=== PATIENT | male | born 1950 | race Two or more races ===

== ENCOUNTER → 2024-07-08 | Outpatient (CLI) | payer MEDICARE, MEDICAID, SELFPAY ==
[2024-07-08 10:37] LABS: Anion Gap 10 (7-16); BUN/Creatinine Ratio 16 Ratio (12-20); Blood Urea Nitrogen 14 mg/dL (9-23); Calcium 9.9 mg/dL (8.3-10.6); Carbon Dioxide 30.1 mMol/L (20.0-31.0); Chloride 104 mMol/L (98-107); Creatinine (Component) 0.9 mg/dL (0.6-1.3); Glucose 93 mg/dL (74-106); Osmolality,Calculated 287 (275-295); Potassium 3.8 mMol/L (3.4-5.1); Sodium 144 mMol/L (136-145); eGFR > 60 See Note
== END | disposition home or self-care (01) ==
LOC: COPL 09:17
PROVIDERS: Referring Provider Urology; Visit Provider Urology
DX: C64.2 Malignant neoplasm of left kidney, except renal pelvis (principal); N40.1 Benign prostatic hyperplasia with lower urinary tract symptoms
CPT/HCPCS: 36415; 80048

== ENCOUNTER 2024-07-27 13:33 | Outpatient (RCR) | payer MEDICARE, MEDICAID, SELFPAY ==
--- NOTE | 2024-07-27 15:24 | CTCFLWUP_ITS ---
Patient: BRAD MORALES : 1950 Page 2 of 2 FOLLOW UP NOTE DATE OF SERVICE: 07/27/2024 NAME: BRAD MORALES ACCOUNT: [id number] : 1950 AGE: 74 INTERVAL HISTORY: Brad, a male with clear-cell carcinoma of the left kidney, presented for follow-up of lung nodules and hypertension. His history includes valley fever and left nephrectomy (11/26/2018). Multiple lung biopsies ([id number]) were negative for malignancy. September 2022 imaging showed 19mm right tracheobronchial lymph nodes without new nodules or metastatic disease. He takes Diflucan for valley fever and amlodipine, benazepril, and Flomax for hypertension/BPH. Plan includes CT chest, bloodwork, continued medications for his valley fever, and follow-up in 2 months. Chief Complaint Follow-up for clear-cell carcinoma of the left kidney, high blood pressure History of Present Illness Brad is a patient with a history of clear-cell carcinoma of the left kidney, status post nephrectomy on 11/26/2018, presenting for follow-up of lung nodules. The patient has undergone multiple biopsies of lung masses and nodules, all of which have been negative for malignancy. The most recent imaging from September 2022 showed 19-millimeter right tracheobronchial lymph nodes, with no new pulmonary nodules or interval metastatic disease in the abdominal pelvis. Since his last visit with Dr. Zepeda in October 2022, Brad has been prescribed Diflucan for valley fever. He has not had any recent scans since 2022. The patient's blood pressure is reported to be very high, and he is currently taking amlodipine, benazepril, and Flomax for management. Brad has been referred to Dr. Wheat for kidney monitoring. Medical History - Clear-cell carcinoma of the left kidney - Valley fever - Hypertension Surgical History - Left nephrectomy on 11/26/2018 for clear-cell carcinoma of the left kidney - Right lung mass biopsy on 08/29/2019 - Lung biopsy on 01/06/2020 - Lung biopsy on 01/03/2022 Medications and Supplements - Diflucan - Prescribed for valley fever. 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 REASON FOR TODAY?S VISIT: This is office follow-up visit. Mr. Morales is here at [facility]. He denies any complaints today. Denies any cough, chest pain, abdominal pain or leg cramps. A recent CT scan of the chest abdomen done on 10/21/2022 showed new small pulmonary nodules. Currently patient is back on Diflucan. DATE OF DIAGNOSIS: STAGE/TNM: TREATMENT HISTORY: Care?Plan Start?Date Cycle Day Intent HISTORY OF PRESENT ILLNESS: Brad Argueta is a 74-year-old S[place] speaking male 2019: Patient had colonoscopy done. 07/09/2018: CT scan of the chest abdomen and pelvis with IV contrast showed mediastinal adenopathy with numerous bilateral pulmonary nodules, enhancing solid tumor mass in the medial aspect of the left kidney. 08/28/2018: Left kidney biopsy?clear cell renal cell carcinoma. Pulmonary nodule CT-guided biopsy on the same day showed caseating granulomatous inflammation. Positive for scant fungal elements. 10/08/2018: Patient was started on Diflucan. 10/12/2018: QuantiFERON TB test negative 10/26/2018 cocci complement fixation positive , 1: 8 Cocci immunodiffusion serum positive IgG 11/26/2018: Patient had ureteroscopic left partial nephrectomy?cystoscopy and ureteral stent placement at [facility]. Pathology showed 2.5 cm clear-cell renal cell carcinoma ISU P grade 3/4, confined to the kidney. No lymphovascular invasion or sarcomatoid or rhabdoid features identified. It was staged as a pT1a, NX, MX disease. 01/27/2019: CT scan of the chest abdomen and pelvis with contrast?IMPRESSION: Stable mediastinal adenopathy Bilateral pulmonary nodules, several are smaller and some pulmonary nodules are no longer identified compared to the July 09, 2018 exam Cystlike area posterior margin left kidney, 4 cm in dimension, not seen on the July 09, 2018 exam Recommend renal sonography follow-up 07/22/2019: CT scan of the chest abdomen and pelvis with IV contrast? 08/18/2011: Patient decided not to have the lung nodules biopsied. 12/20/2019: CT scan of the chest, abdomen and pelvis with IV contrast? 01/06/2020: CT-guided biopsy of the right upper lobe pulmonary mass lesion? 08/16/2020: CT scan of the chest abdomen and pelvis with IV contrast 07/25/2021: CT scan of the chest, abdomen and pelvis with IV contrast to evaluate the cause for abdominal pain of 1 day duration? 08/28/2021: CT-guided biopsy of the right lung lower lobe nodule? 11/20/2021: CT scan of the chest abdomen and pelvis with IV contrast? 01/03/2022: CT-guided biopsy of the right lung lesion? 01/22/2022: X-rays of both hips as well as both femurs? 02/14/2022: Bone scan negative for metastatic disease. 10/21/2022: CT scan of the chest and abdomen with contrast? OTHER MEDICAL HISTORY/CONDITIONS: FAMILY HISTORY: SOCIAL HISTORY: MEDICATIONS: 1. amlodipine - 5 mg 1 tab Daily 2. benazepril-hydrochlorothiazide - 20-12.5 mg 1 tab Daily 3. carvedilol - 25 mg 1 tab Daily 4. Diflucan - 200 mg 1 tab Daily 5. Lantus Solostar - 100 unit/mL (3 mL) 46 Unit Daily 6. omeprazole - 40 mg 1 Capsule Daily 7. tamsulosin - 0.4 mg 1 Capsule Daily Medications Last Reconciled by Gisell Brown MA on 07/27/2024 ALLERGIES: No Known Drug Allergies REVIEW OF SYSTEMS: A complete 14-point review of systems was performed and is negative except as noted in interval history. PHYSICAL EXAMINATION: VITAL SIGNS: Temperature?98, B/P?174/87, Oxygen?Saturation?98% Weight?181?lbs PAIN: 8 - Very severe pain ECOG Performance Status: 0 - Asymptomatic and fully active GENERAL APPEARANCE: Appears well, in no apparent distress, appropriately interactive. HEENT: Normocephalic, no temporal wasting, normal conjunctiva, no scleral icterus, normal hearing, lips without lesions, neck normal range of motion. CARDIOVASCULAR: Not assessed. PULMONARY: Normal respiratory effort, no respiratory distress or use of accessory muscles, speaking in full sentences, no tachypnea. EXTREMITIES: No pedal edema or cyanosis. SKIN: Normal skin appearance. NEUROLOGIC: Alert and oriented x4. PSHYCHIATRIC: Appropriate affect, mood normal, behavior normal, intact thought and speech. LABORATORY DATA: I have personally reviewed and interpreted each of the patient?s relevant lab tests, abnormal findings are below: Date 08/18/23 07/08/24 ??WHITE?BLOOD?COUNT?(Thou/mm3) 4.1 ? ??RED?BLOOD?COUNT?(Miln/mm3) 4.89 ? ??HEMOGLOBIN?(gm/dl) 13.4?L ? ??HEMATOCRIT?(%) 41.0 ? ??PLATELET?COUNT?(Thou/mm3) 187 ? ??NEUTROPHILS?%,?AUTO?(%) 61 ? ??LYMPH?%,?AUTO?(%) 28 ? ??NEUTROPHILS,?AUTO?(Thou/mm3) 2.5 ? ??GLUCOSE,RANDOM?(mg/dL) 93 93 ??BLOOD?UREA?NITROGEN?(mg/dL) 10 14 ??CREATININE?(mg/dL) 0.70 0.90 ??SODIUM?(mmol/L) 137 144 ??POTASSIUM?(mmol/L) 3.5 3.8 ??CHLORIDE?(mmol/L) 103 104 ??CrCl?(CandG)?(ml/min) 93.23 72.51 ??AST/SGOT?(Unit/L) 26 ? ??ALT/SGPT?(Unit/L) 19 ? ??ALKALINE?PHOSPHATASE?(Unit/L) 132?H ? ??BILIRUBIN,?TOTAL?(mg/dL) 0.8 ? ??PROTEIN?TOTAL?(gm/dl) 7.6 ? ??ALBUMIN,?SERUM?(gm/dl) 4.4 ? ??GLOBULIN?(gm/dl) 3.2 ? ??ALBUMIN/GLOBULIN?RATIO 1.4 ? ??CALCIUM,?SERUM?(mg/dL) 9.8 9.9 ??CALCIUM?SERUM?(CORRECTED)?(mg/dL) 9.8 ? ??CEA?(O*)?(ng/ml) 0.9 ? Vital Signs - Blood Pressure: Elevated (exact measurements not provided) Laboratory, Imaging, and Diagnostic Test Results - Biopsy (08/29/2019): Right lung mass showed benign muscle and fibrotic tissue with chronic inflammation - Biopsy (01/06/2020): Negative for malignancy - Biopsy (01/03/2022): Benign lung tissue with no specific pathological alterations - Imaging (10/21/2022): - 19-millimeter right tracheobronchial lymph nodes - No new pulmonary nodules - No interval metastatic disease in the abdominal pelvis ASSESSMENT/PLAN: Clear cell carcinoma of the left kidney. Status post left partial nephrectomy. No evidence of recurrence History of pulmonary coccidiomycosis infection. Bone scan is also negative for bone mets. CT-guided biopsy of the right lung lesion is negative for malignancy (01/03/2022). Repeat CT scan done on 11/20/2021 showed enlarging right tracheobronchial lymph node as well as other lesions as described above. CT-guided biopsy of the right lower lobe pulmonary nodule was nondiagnostic as described above (08/28/2021). Currently Mr. Morales is on Diflucan for valley fever. Continue Diflucan. Brad, a male patient with a history of clear-cell carcinoma of the left kidney status post nephrectomy in 2018, presents for follow-up of lung nodules and hypertension management. Clear-cell carcinoma of the left kidney, status post nephrectomy Assessment: Patient underwent left nephrectomy on 11/26/2018 for clear-cell carcinoma. Subsequent lung nodules were identified, prompting multiple biopsies. Biopsies on 08/29/2019, 01/06/2020, and 01/03/2022 were negative for malignancy. Most recent imaging on 10/21/2022 showed 19-millimeter right tracheobronchial lymph nodes, no new pulmonary nodules, and no interval metastatic disease in the abdominal pelvis. No imaging has been performed since September 2022. Patient was last seen by Dr. Zepeda in October 2022. Plan: - Order CT scan of the chest for surveillance - Order blood work (specifics not mentioned) - Follow-up in [address] scan results Hypertension Assessment: Patient's blood pressure is noted to be very high. Currently on amlodipine, benazepril, and Flomax for management. Plan: - Continue current antihypertensive medications: amlodipine, benazepril, and Flomax - Referred to Dr. Wheat for kidney monitoring Valley fever Assessment: Patient was prescribed Diflucan for valley fever. No further details provided about the course or severity of the infection. Plan: - Continue Diflucan for valley fever (dosage and duration not specified) ORDERS: Order # Description [id number] Comprehensive Metabolic Panel - 12 + CBC with Auto Diff [id number] CT Scan + Chest + With W/O Contrast + Abdomen and Pelvis [id number] Follow Up 2 Months [id number] RETURN TO CLINIC: BILLING AND COMPLIANCE: I reviewed external records from providers outside my specialty as summarized above. I spent a total of 50 minutes on this patient?s care on the day of their visit excluding time spent related to any billed procedures. This time includes time spent with the patient as well as time spent documenting in the medical record, reviewing patients records and tests, obtaining history, placing orders, communicating with other healthcare professionals, counseling the patient, family or caregiver, and/or care coordination for the diagnoses above. Electronically Signed by: Jaya Kim MD T: 3:22 PM CC: PCP: Jaya Kim Referring: Jaya Kim This document was completed utilizing speech recognition software. Grammatical errors, random word insertions, pronoun errors, and incomplete sentences are an occasional consequence of this system due to software limitations, ambient noise, and hardware issues. Any formal questions or concerns about the content, text or information contained within the body of this dictation should be directly addressed to the provider for clarification.
== END 2024-07-28 23:59 | disposition home or self-care (01) ==
LOC: SCTC 13:33
PROVIDERS: PCP Family Medicine; Referring Provider Internal Medicine Hematology & Oncology; Visit Provider Internal Medicine Hematology & Oncology
DX: Z08 Encounter for follow-up examination after completed treatment for malignant neoplasm (principal); Z85.528 Personal history of other malignant neoplasm of kidney; Z90.5 Acquired absence of kidney; I10 Essential (primary) hypertension; R91.8 Other nonspecific abnormal finding of lung field; R59.0 Localized enlarged lymph nodes; B38.2 Pulmonary coccidioidomycosis, unspecified
CPT/HCPCS: 99212; G0463

== ENCOUNTER → 2024-08-18 | Outpatient (CLI) | payer MEDICARE, MEDICAID, SELFPAY ==
[2024-08-17 12:22] LABS: Basophils % (Auto) 1 % (0-2.5); Eosinophils # (Auto) 0.1 Thou/mm3 (0.0-0.5); Eosinophils % (Auto) 1 % (0-10); Hematocrit 43.4 % (41.0-53.0); Hemoglobin 14.4 g/dL (13.5-16.0); Immature Granulocytes % (Auto) 1 % (0-0); Immature Granulocytes Auto 0.02 Thou/mm3 (0.00-0.00); Lymphocytes # (Auto) 1.5 Thou/mm3 (1.0-4.8); Lymphocytes % (Auto) 37 % (10-50); Mean Corpuscular HGB Conc 33.2 g/dl (31.0-37.0); Mean Corpuscular Volume 84 fL (80-100); Monocytes # (Auto) 0.5 Thou/mm3 (0.0-0.8); Monocytes % (Auto) 13 % (0-12); Neutrophils % (Auto) 49 % (37-80); Nucleated Red Blood Cell % 0 /100 WBC (0); Platelet Count 217 Thou/mm3 (140-440); RDW Standard Deviation 43.4 fL (35.1-43.9); Red Blood Count 5.15 Miln/mm3 (4.50-5.90); White Blood Count 4.2 Thou/mm3 (3.8-10.6)
[2024-08-17 12:38] LABS: Alanine Aminotransferase 13 U/L (10-49); Albumin, Serum 4.6 gm/dL (3.4-4.8); Albumin/Globulin Ratio 1.5 (1.2-2.2); Alkaline Phosphatase 133 U/L (46-116); Anion Gap 9 (7-16); Aspartate Amino Transferase 20 U/L (0-34); BUN/Creatinine Ratio 18 Ratio (12-20); Bilirubin,Total 0.8 mg/dL (0.3-1.2); Blood Urea Nitrogen 20 mg/dL (9-23); Calcium 10.1 mg/dL (8.3-10.6); Calcium (Corrected) 10.1 mg/dL (8.5-10.1); Carbon Dioxide 30.8 mMol/L (20.0-31.0); Chloride 101 mMol/L (98-107); Creatinine (Component) 1.1 mg/dL (0.6-1.3); Globulin 3.1 gm/dL (2.3-3.5); Glucose 153 mg/dL (74-106); Osmolality,Calculated 286 (275-295); Sodium 141 mMol/L (136-145); Total Protein 7.7 gm/dL (5.7-8.2); eGFR > 60 See Note
--- NOTE | 2024-08-18 15:03 | XR_ITS ---
Examination: CT chest with intravenous contrast CT abdomen with intravenous contrast CT pelvis with intravenous contrast CT chest without intravenous contrast CT abdomen without intravenous contrast CT pelvis without intravenous contrast 2-D coronal and sagittal reconstructions Time of exam: August 18, [address] abdomen pelvis August 26, 2023, CT abdomen and pelvis February 26, 2023, CT chest October 21, 2022 INDICATIONS: Diagnosis left renal cell carcinoma, post partial nephrectomy 2014, restaging, 4 mm left common iliac lymph node on CT abdomen and pelvis August 26, 2023, 19 mm right tracheobronchial lymph node and pulmonary nodules on CT chest October 21, 2022 restaging CTDI: vol (mGy) : 15.8 DLP: (mGycm): 1303 Technique: Multiple axial images of the chest, abdomen and pelvis with intravenous contrast, 3.0 mm slice thickness. Images obtained post intravenous injection Isovue 370 60 cc. 2-D sagittal and coronal reconstructions. Low dose protocols were performed. One or more of the following dose reduction techniques were used; automated exposure control, adjustment of the mA and/or KV according to patient size, use of iterative reconstruction technique. Findings: AP dimension ascending thoracic aorta 3.8 cm, no thoracic aortic dissection Pulmonary artery segments are not enlarged No pulmonary artery filling defects on this non-CTA study Stable 19 mm right tracheobronchial lymph node compared to CT chest October 21, 2022 No interval hilar or subcarinal lymphadenopathy Stable 3 mm pulmonary nodule right upper lobe compared with October 21, 2022 Cavitary mass 18 mm in the left upper lobe on the CT chest October 21, 2022 is now a solid nodule measuring 11 mm Pulmonary nodule left upper lobe 7 mm compared to 7 mm on October 21, 2022 Pulmonary nodule in the right upper lobe image 102 now measures 11 mm compared to 7 mm on October 21, 2022 No interval pneumonia or pulmonary edema No interval liver or splenic lesions Contracted gallbladder No pancreatic or adrenal mass Partial left colectomy with no recurrent solid renal mass lesions No thrombus in the renal veins Adrenal glands are not enlarged Stable 4 mm left common iliac lymph node compared with October 21, 2022 No new abdominal or pelvic lymphadenopathy Moderate osteopenia Mild prostatomegaly IMPRESSION: One of the pulmonary nodules in the right upper lobe now measures 11 mm compared to [address] chest October 21, 2022, the remaining pulmonary nodules are stable, recommend continued 6 month follow-up CT chest without contrast No interval solid renal mass lesions Stable 4 mm left common iliac node compared to CT abdomen and pelvis October 21, 2022 No interval abdominal or pelvic lymphadenopathy
== END | disposition home or self-care (01) ==
LOC: SCTO 14:57 → SCAT 08-27 10:55
PROVIDERS: Referring Provider Internal Medicine Hematology & Oncology; Visit Provider Internal Medicine Hematology & Oncology
DX: R91.8 Other nonspecific abnormal finding of lung field (principal); C34.91 Malignant neoplasm of unspecified part of right bronchus or lung; C34.92 Malignant neoplasm of unspecified part of left bronchus or lung
CPT/HCPCS: 36415; 71270; 74178; 80053; 85025; A4649; Q9967

== ENCOUNTER → 2024-09-16 | Outpatient (CLI) | payer MEDICARE, MEDICAID, SELFPAY ==
[2024-09-16 10:36] LABS: Basophils % (Auto) 1 % (0-2.5); Eosinophils # (Auto) 0.1 Thou/mm3 (0.0-0.5); Eosinophils % (Auto) 2 % (0-10); Hematocrit 41.6 % (41.0-53.0); Hemoglobin 13.8 g/dL (13.5-16.0); Immature Granulocytes % (Auto) 1 % (0-0); Immature Granulocytes Auto 0.04 Thou/mm3 (0.00-0.00); Lymphocytes # (Auto) 1.3 Thou/mm3 (1.0-4.8); Lymphocytes % (Auto) 30 % (10-50); Mean Corpuscular HGB Conc 33.2 g/dl (31.0-37.0); Mean Corpuscular Hemoglobin 27.4 pg (25.0-35.0); Mean Corpuscular Volume 83 fL (80-100); Monocytes # (Auto) 0.6 Thou/mm3 (0.0-0.8); Monocytes % (Auto) 14 % (0-12); Neutrophils # (Auto) 2.2 Thou/mm3 (1.8-7.7); Neutrophils % (Auto) 53 % (37-80); Nucleated Red Blood Cell % 0 /100 WBC (0); Platelet Count 201 Thou/mm3 (140-440); RDW Standard Deviation 42.7 fL (35.1-43.9); Red Blood Count 5.04 Miln/mm3 (4.50-5.90); White Blood Count 4.2 Thou/mm3 (3.8-10.6)
[2024-09-16 11:01] LABS: Alanine Aminotransferase 20 U/L (10-49); Albumin, Serum 4.4 gm/dL (3.4-4.8); Albumin/Globulin Ratio 1.6 (1.2-2.2); Alkaline Phosphatase 118 U/L (46-116); Anion Gap 8 (7-16); Aspartate Amino Transferase 27 U/L (0-34); BUN/Creatinine Ratio 12 Ratio (12-20); Bilirubin,Total 0.9 mg/dL (0.3-1.2); Blood Urea Nitrogen 11 mg/dL (9-23); Calcium 9.4 mg/dL (8.3-10.6); Calcium (Corrected) 9.4 mg/dL (8.5-10.1); Chloride 102 mMol/L (98-107); Creatinine (Component) 0.9 mg/dL (0.6-1.3); Globulin 2.8 gm/dL (2.3-3.5); Glucose 173 mg/dL (74-106); Osmolality,Calculated 282 (275-295); Sodium 140 mMol/L (136-145); Total Protein 7.2 gm/dL (5.7-8.2); eGFR > 60 See Note
== END | disposition home or self-care (01) ==
LOC: COPL 09:30
PROVIDERS: PCP Internal Medicine Hematology & Oncology; Referring Provider Internal Medicine Hematology & Oncology; Visit Provider Internal Medicine Hematology & Oncology
DX: C34.91 Malignant neoplasm of unspecified part of right bronchus or lung (principal); C34.92 Malignant neoplasm of unspecified part of left bronchus or lung; N28.89 Other specified disorders of kidney and ureter
CPT/HCPCS: 36415; 80053; 85025

== ENCOUNTER 2024-09-23 14:34 | Outpatient (RCR) | payer MEDICARE, MEDICAID, SELFPAY ==
--- NOTE | 2024-09-30 03:50 | CTCFLWUP_ITS ---
Patient: BRAD MORALES : 1950 Page 8 of 10 FOLLOW UP NOTE DATE OF SERVICE: 09/23/2024 NAME: BRAD MORALES ACCOUNT: [id number] : 1950 AGE: 74 INTERVAL HISTORY: Brad Morales, a male with lung nodules and history of renal cancer status post nephrectomy (2018) and valley fever, presented for nodule follow-up. Recent imaging showed most nodules stable except one increased to 11mm. Previous biopsies were negative for malignancy. Given the diagnostic uncertainty between metastatic renal cancer versus valley fever manifestation, management includes CT chest in 6 months, Eric testing to help differentiate etiology, and possible rebiopsy if further growth occurs. His history includes valley fever and left nephrectomy (11/26/2018). Multiple lung biopsies ([id number]) were negative for malignancy. September 2022 imaging showed 19mm right tracheobronchial lymph nodes without new nodules or metastatic disease. He takes Diflucan for valley fever and amlodipine, benazepril, and Flomax for hypertension/BPH. Subjective: Chief Complaint Follow-up for lung nodules, history of renal cancer History of Present Illness Brad Morales is a male patient with a history of renal cancer, status post nephrectomy in 2018, and valley fever. He presents for follow-up of lung nodules. The patient has been under surveillance for lung nodules, which were previously biopsied and found to be negative for malignancy. Recent imaging shows that most of the lung nodules remain stable, except for one which has increased in size to 11 millimeters. The patient has also been referred to nephrology in the past, though it is unclear if he has seen the kidney doctor as recommended. Given the patient's history of valley fever, there is uncertainty about the etiology of the enlarging lung nodule. The plan is to repeat imaging in 6 months to monitor for further growth and consider rebiopsy if necessary. Objective: Laboratory, Imaging, and Diagnostic Test Results - CT scan of the chest (date not specified): - Multiple lung nodules present - One lung nodule increased in size to 11 mm - Other lung nodules stable - Previous biopsy of lung nodules (date not specified): Negative for malignancy Surgical History - Left nephrectomy on 11/26/2018 for clear-cell carcinoma of the left kidney - Right lung mass biopsy on 08/29/2019 - Lung biopsy on 01/06/2020 - Lung biopsy on 01/03/2022 Medications and Supplements - Diflucan - Prescribed for valley fever. 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 REASON FOR TODAY?S VISIT: This is office follow-up visit. Mr. Morales is here at [facility]. He denies any complaints today. Denies any cough, chest pain, abdominal pain or leg cramps. A recent CT scan of the chest abdomen done on 10/21/2022 showed new small pulmonary nodules. Currently patient is back on Diflucan. DATE OF DIAGNOSIS: STAGE/TNM: TREATMENT HISTORY: Care?Plan Start?Date Cycle Day Intent HISTORY OF PRESENT ILLNESS: Brad Argueta is a 74-year-old SPA speaking male 2019: Patient had colonoscopy done. 07/09/2018: CT scan of the chest abdomen and pelvis with IV contrast showed mediastinal adenopathy with numerous bilateral pulmonary nodules, enhancing solid tumor mass in the medial aspect of the left kidney. 08/28/2018: Left kidney biopsy?clear cell renal cell carcinoma. Pulmonary nodule CT-guided biopsy on the same day showed caseating granulomatous inflammation. Positive for scant fungal elements. 10/08/2018: Patient was started on Diflucan. 10/12/2018: QuantiFERON TB test negative 10/26/2018 cocci complement fixation positive , 1: 8 Cocci immunodiffusion serum positive IgG 11/26/2018: Patient had ureteroscopic left partial nephrectomy?cystoscopy and ureteral stent placement at [facility]. Pathology showed 2.5 cm clear-cell renal cell carcinoma ISU P grade 3/4, confined to the kidney. No lymphovascular invasion or sarcomatoid or rhabdoid features identified. It was staged as a pT1a, NX, MX disease. 01/27/2019: CT scan of the chest abdomen and pelvis with contrast?IMPRESSION: Stable mediastinal adenopathy Bilateral pulmonary nodules, several are smaller and some pulmonary nodules are no longer identified compared to the July 09, 2018 exam Cystlike area posterior margin left kidney, 4 cm in dimension, not seen on the July 09, 2018 exam Recommend renal sonography follow-up 07/22/2019: CT scan of the chest abdomen and pelvis with IV contrast? 08/18/2011: Patient decided not to have the lung nodules biopsied. 12/20/2019: CT scan of the chest, abdomen and pelvis with IV contrast? 01/06/2020: CT-guided biopsy of the right upper lobe pulmonary mass lesion? 08/16/2020: CT scan of the chest abdomen and pelvis with IV contrast 07/25/2021: CT scan of the chest, abdomen and pelvis with IV contrast to evaluate the cause for abdominal pain of 1 day duration? 08/28/2021: CT-guided biopsy of the right lung lower lobe nodule? 11/20/2021: CT scan of the chest abdomen and pelvis with IV contrast? 01/03/2022: CT-guided biopsy of the right lung lesion? 01/22/2022: X-rays of both hips as well as both femurs? 02/14/2022: Bone scan negative for metastatic disease. 10/21/2022: CT scan of the chest and abdomen with contrast? OTHER MEDICAL HISTORY/CONDITIONS: FAMILY HISTORY: SOCIAL HISTORY: MEDICATIONS: 1. amlodipine - 5 mg 1 tab Daily 2. benazepril-hydrochlorothiazide - 20-12.5 mg 1 tab Daily 3. carvedilol - 25 mg 1 tab Daily 4. Lantus Solostar - 100 unit/mL (3 mL) 46 Unit Daily 5. omeprazole - 40 mg 1 Capsule Daily 6. tamsulosin - 0.4 mg 1 Capsule Daily Medications Last Reconciled by Gisell Brown MA on 09/23/2024 ALLERGIES: No Known Drug Allergies REVIEW OF SYSTEMS: A complete 14-point review of systems was performed and is negative except as noted in interval history. PHYSICAL EXAMINATION: VITAL SIGNS: Temperature?98, B/P?146/80, Oxygen?Saturation?98% PAIN: 0 - No pain ECOG Performance Status: 0 - Asymptomatic and fully active GENERAL APPEARANCE: Appears well, in no apparent distress, appropriately interactive. HEENT: Normocephalic, no temporal wasting, normal conjunctiva, no scleral icterus, normal hearing, lips without lesions, neck normal range of motion. CARDIOVASCULAR: Not assessed. PULMONARY: Normal respiratory effort, no respiratory distress or use of accessory muscles, speaking in full sentences, no tachypnea. EXTREMITIES: No pedal edema or cyanosis. SKIN: Normal skin appearance. NEUROLOGIC: Alert and oriented x4. PSHYCHIATRIC: Appropriate affect, mood normal, behavior normal, intact thought and speech. LABORATORY DATA: I have personally reviewed and interpreted each of the patient?s relevant lab tests, abnormal findings are below: Date 08/17/24 09/16/24 ??WHITE?BLOOD?COUNT?(Thou/mm3) 4.2 4.2 ??RED?BLOOD?COUNT?(Miln/mm3) 5.15 5.04 ??HEMOGLOBIN?(gm/dl) 14.4 13.8 ??HEMATOCRIT?(%) 43.4 41.6 ??PLATELET?COUNT?(Thou/mm3) 217 201 ??NEUTROPHILS?%,?AUTO?(%) 49 53 ??LYMPH?%,?AUTO?(%) 37 30 ??NEUTROPHILS,?AUTO?(Thou/mm3) 2.0 2.2 ??GLUCOSE,RANDOM?(mg/dL) 153?H 173?H ??BLOOD?UREA?NITROGEN?(mg/dL) 20 11 ??CREATININE?(mg/dL) 1.10 0.90 ??SODIUM?(mmol/L) 141 140 ??POTASSIUM?(mmol/L) 4.0 4.0 ??CHLORIDE?(mmol/L) 101 102 ??CrCl?(CandG)?(ml/min) 57.24 69.96 ??AST/SGOT?(Unit/L) 20 27 ??ALT/SGPT?(Unit/L) 13 20 ??ALKALINE?PHOSPHATASE?(Unit/L) 133?H 118?H ??BILIRUBIN,?TOTAL?(mg/dL) 0.8 0.9 ??PROTEIN?TOTAL?(gm/dl) 7.7 7.2 ??ALBUMIN,?SERUM?(gm/dl) 4.6 4.4 ??GLOBULIN?(gm/dl) 3.1 2.8 ??ALBUMIN/GLOBULIN?RATIO 1.5 1.6 ??CALCIUM,?SERUM?(mg/dL) 10.1 9.4 ??CALCIUM?SERUM?(CORRECTED)?(mg/dL) 10.1 9.4 ASSESSMENT/PLAN: Clear cell carcinoma of the left kidney. Status post left partial nephrectomy. No evidence of recurrence History of pulmonary coccidiomycosis infection. Bone scan is also negative for bone mets. CT-guided biopsy of the right lung lesion is negative for malignancy (01/03/2022). Repeat CT scan done on 11/20/2021 showed enlarging right tracheobronchial lymph node as well as other lesions as described above. CT-guided biopsy of the right lower lobe pulmonary nodule was nondiagnostic as described above (08/28/2021). Currently Mr. Morales is on Diflucan for valley fever. Brad Morales, male patient with history of renal cancer status post nephrectomy in 2019, presenting for follow-up of lung nodules. Lung Nodules Assessment: Patient has multiple lung nodules that have been under surveillance. Most nodules are stable, but one has increased in size to 11 mm. Previous biopsy of the nodules was negative. The etiology of the nodules is unclear, as the patient has a history of both renal cancer and valley fever, either of which could potentially cause lung nodules. Given the growth of one nodule, further evaluation is warranted. Plan: - Order CT scan of the chest in 6 months for reassessment of lung nodules - Order Eric testing to help differentiate between cancerous and non-cancerous etiology of the nodules - If the nodule continues to grow on follow-up imaging, consider repeat biopsy History of Renal Cancer Assessment: Patient has a history of renal cancer for which he underwent nephrectomy in 2019. Currently being monitored for potential metastatic disease, particularly in light of the lung nodules. Plan: - Continue surveillance with imaging studies as outlined in the lung nodules plan - Await results of Eric testing to guide further management Valley Fever Assessment: Patient has a history of valley fever, which is being considered as a potential cause of the lung nodules. Plan: - Continue monitoring lung nodules as outlined in the lung nodules plan - Consider valley fever as a differential diagnosis pending results of further testing - Clear-cell carcinoma of the left kidney - Valley fever - Hypertension ORDERS: Order # Description [id number] CT Scan + Chest + With W/O Contrast RETURN TO CLINIC: I reviewed the diagnosis, prognosis, and recommended treatment/procedure options with the patient (and/or their legal computer help desk representative), including the potential benefits, risks, side effects and alternative therapies. We also discussed the option of no treatment and the possibility of clinical trial participation, if applicable. All questions were addressed, and they demonstrated understanding. They provided informed consent to proceed with the proposed plan of care. BILLING AND COMPLIANCE: I reviewed external records from providers outside my specialty as summarized above. I spent a total of 50 minutes on this patient?s care on the day of their visit excluding time spent related to any billed procedures. This time includes time spent with the patient as well as time spent documenting in the medical record, reviewing patients records and tests, obtaining history, placing orders, communicating with other healthcare professionals, counseling the patient, family or caregiver, and/or care coordination for the diagnoses above. Electronically Signed by: {Object.Sanct_ID*PnP.NameFL@M}, {Object.Sanct_ID*PnP.Suffix@U} D: {Object.Sanct_Date} T: {Object.Sanct_Time} CC: PCP: Jaya Kim Referring: Jaya Kim This document was completed utilizing speech recognition software. Grammatical errors, random word insertions, pronoun errors, and incomplete sentences are an occasional consequence of this system due to software limitations, ambient noise, and hardware issues. Any formal questions or concerns about the content, text or information contained within the body of this dictation should be directly addressed to the provider for clarification.
== END 2024-09-27 23:59 | disposition home or self-care (01) ==
LOC: SCTC 14:34
PROVIDERS: PCP Family Medicine; Referring Provider Internal Medicine Hematology & Oncology; Visit Provider Internal Medicine Hematology & Oncology
DX: Z08 Encounter for follow-up examination after completed treatment for malignant neoplasm (principal); Z85.528 Personal history of other malignant neoplasm of kidney; Z90.5 Acquired absence of kidney; R91.8 Other nonspecific abnormal finding of lung field; B38.0 Acute pulmonary coccidioidomycosis
CPT/HCPCS: 99213; G0463

== ENCOUNTER → 2024-09-27 | Outpatient (BNVA) | payer MEDICARE, MEDICAID, SELFPAY | END | disposition home or self-care (01) | PROVIDERS: Visit Provider Urology | DX: N40.1 Benign prostatic hyperplasia with lower urinary tract symptoms (principal); N13.8 Other obstructive and reflux uropathy; C64.2 Malignant neoplasm of left kidney, except renal pelvis; I10 Essential (primary) hypertension; I25.10 Atherosclerotic heart disease of native coronary artery without angina pectoris; E11.9 Type 2 diabetes mellitus without complications; Z79.4 Long term (current) use of insulin; E66.9 Obesity, unspecified; Z68.33 Body mass index [BMI] 33.0-33.9, adult; E78.00 Pure hypercholesterolemia, unspecified | CPT/HCPCS: 81003; 99212; 99213; G0463 ==

== ENCOUNTER 2024-12-06 17:18 | Emergency (ER) | payer MEDICARE, MEDICAID, SELFPAY ==
--- NOTE | 2024-12-06 17:20 | EKG_ITS ---
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: : 1950 Requested By: Eber Pak Order Number: [id number] Reading MD: Eber Pak Measurements Intervals [place] Rate: 81 P: 65 SD: 233 QRS: -33 QRSD: 85 T: 62 QT: 343 QTc: 400 Interpretive Statements SINUS RHYTHM WITH FIRST DEGREE AV BLOCK POSSIBLE RIGHT VENTRICULAR CONDUCTION DELAY [RSR (QR) IN V1/V2] MODERATE VOLTAGE CRITERIA FOR LVH, CONSIDER NORMAL VARIANT [MEETS CRITERIA IN ONE OF: R(aVL), S(V1), R(V5), R(V5/V6)+S(V1)] POSSIBLE ANTERIOR MYOCARDIAL INFARCTION , OF INDETERMINATE AGE [30 ms Q WAVE IN V3/V4, OR R < 0.2 mV IN V4] INFERIOR MYOCARDIAL INFARCTION , PROBABLY OLD [40+ ms Q WAVE AND/OR ST/T ABNORMALITY IN II/aVF] Compared to ECG 02/26/2023 19:55:46 First degree AV block now present Myocardial infarct finding still present /store/S0/[id number]/ecg/[id number].pdf
--- NOTE | 2024-12-06 17:20 | XR_ITS ---
Examination: AP chest single view. Technique: Portable sitting AP chest single view Date and time: December 06, 2024, 1751 hrs. Indications: Sepsis protocol. Today Findings: Mild to moderate bibasilar pneumonia. Mild prominence left ventricle. Prominent osteopenia. Impression: Bibasilar pneumonia.
--- NOTE | 2024-12-06 17:21 | EDNOTE_ITS ---
ED General RME/HPI General Chief complaint: Flu Like Symptoms Stated complaint: COVID/FLU LIKE SYMPTOMS Time Seen by Provider: 12/06/24 17:19 Arrival date/time: 12/06/24 17:18 CC: Cough fever body aches chest pain abdominal pain patient denies nausea or vomiting onset 4 days ago EMS report tachycardia warm to touch with otherwise stable vital signs. Patient is awake alert oriented stating nobody else in the household is ill. Related Data Home Medications ?Medication ?Instructions ?Recorded ?Confirmed insulin glargine 100 unit/mL (3 46 unit subcut HS 06/3009/27/24 mL) subcutaneous pen (Lantus Solostar U-100 Insulin) metoprolol succinate 25 mg 25 mg PO QDAY 07/25/2108/31 tablet,extended release 24 hr amlodipine 10 mg tablet 10 mg PO QDAY 01/04/2209/27 atorvastatin 80 mg tablet 80 mg PO QDAY 01/04/2209/27 tamsulosin 0.4 mg capsule 0.4 mg PO QHS 06/13/2309/27 Previous Rx's ?Medication ?Instructions ?Recorded ondansetron 4 mg disintegrating 4 mg PO Q8H #10 tabs 0 12/06/24 tablet ondansetron 4 mg disintegrating 4 mg PO Q8H #10 tabs 0 12/06/24 tablet Allergies Allergy/AdvReac Type Severity Reaction Status Date / Time No Known Allergies Allergy Verified 09/27/24 13:23 Review of Systems Review of Systems Narrative Review of Systems: GEN: + fever, + chills, no weight loss EYES: No discharge, no visual changes, no pain HEENT: No ear pain, no congestion, no sore throat PULM: No shortness of breath, no cough, no congestion CV: + chest pain, no dyspnea on exertion, no palpitations GI: No nausea, no vomiting, no diarrhea, no pain, no constipation : No frequency, no urgency, no dysuria MUSC/SKEL: No joint pain, no back pain SKIN: No rash PSYCH: No hallucinations, no depression HEME/LYMPH: No easy bleeding or bruising tendencies NEURO: + weakness, no headache Past Medical History Past Medical History NEUROLOGIC: Negative Neurological Disorders CARDIAC: Positive Hypercholesterolemia and Hypertension; Negative Cardiac Disorders or Congestive Heart Failure RESPIRATORY: Negative Chronic Obstructive Pulmonary Disease (COPD) or Asthma GASTROINTESTINAL: Positive Gastrointestinal Disorders (constipation); Negative Gastroesophageal Reflux Disease GENITOURINARY: Positive Renal Disease and Benign Prostatic Hyperplasia MUSCULOSKELETAL: Positive Arthritis and Fibromyalgia ENT: Negative Cataracts ENDOCRINE: Positive Diabetes Mellitus Type 2; Negative Diabetes Mellitus Type 1 HEMATOLOGIC: Negative Blood Disorders or Sickle Cell Disease PSYCHO/SOCIAL: Positive Depression OTHER HISTORY: Positive Hospitalization, Chicken Pox, Measles, Cancer and Lung Cancer; Negative Autoimmune Disease, Down Syndrome, Developmental Delay, Shingles, Falls, Blood Transfusions, Anesthesia Reactions, Organ Transplant or MRSA Family History FAMILY HISTORY: Negative Family Psychiatric Problems, Family Respiratory Disorders, Family Cardiac Disorders, Family Gastrointestinal Problems, Family Cancer, Family Surgery or Family Anesthesia Reaction Surgical History SURGICAL: Positive Nephrectomy (rt partial); Negative Cardiac Surgery, Endocrine Surgery, Ear Surgery, Abdominal Surgery, Joint Replacement or Organ Transplant Social History SMOKING STATUS: Never smoker ED Exam Narrative Physical exam: [General: Obese in mild discomfort but not in any acute distress Head normocephalic HEENT: Eyes pupils are PERRLA EOMs are intact mouth pink dry membranes uvula is midline swallow symmetrical nose: No rhinorrhea epistaxis. All other subsystems of HEENT are within acceptable limits Neck is supple nontender no LAD, no edema Chest equal chest rise nontender to palpation Respiratory: Clear to auscultation no wheezes crackles or rubs CV: Rate rhythm is regular, tachycardic, no murmurs rubs or clicks Abdomen is distended secondary to body habitus soft nontender no masses positive bowel sounds all 4 quadrants Back: No CVA tenderness no spinous process tenderness from cervical spine thoracic and lumbar spine Skin: Intact no petechiae rash induration ulceration or crepitus Extremities: Moving all extremity against resistance cap refill less than 2 seconds neurosensory intact Neuro: Awake alert oriented x2, person and place, Glascow coma 15 no focal deficits] Course Quality Measures none Orders Category Date Time Status Bedside COVID-19 Antigen Test NOW Care 12/06/24 17:20 Completed Bedside Influenza A&B Antigen Test NOW Care 12/06/24 17:20 Completed Pot Pusher STAT Care 12/06/24 17:20 Completed Continuous Pulse Oximetry STAT Care 12/06/24 17:20 Completed EKG (ED ONLY) *Do not use* NOW Care 12/06/24 17:20 Completed In and Out Catheter X1PRN Care 12/06/24 17:20 Completed Insert IV NOW Care 12/06/24 17:20 Completed NPO STAT Care 12/06/24 17:20 Completed Strict Intake and Output Routine Care 12/06/24 17:[address] abdomen pelvis wo con Stat Exams 12/06/24 19:11 Completed EKG (ED Only) Stat Exams 12/06/24 17:20 Draft XR chest 1V SEPSIS PROTOCOL Stat Exams 12/06/24 17:20 Completed B-Type Natriuretic Peptide Stat Lab 12/06/24 17:45 Completed Blood Culture (Lab) Stat Lab 12/06/24 17:50 Received CBC Stat Lab 12/06/24 17:45 Completed Comprehensive Metabolic Panel Stat Lab 12/06/24 17:45 Completed LDH (Lactate Dehydrogenase) Stat Lab 12/06/24 17:45 Completed Lactate (Lactic Acid) Stat Lab 12/06/24 17:45 Completed Lipase Stat Lab 12/06/24 17:45 Completed Magnesium Stat Lab 12/06/24 17:45 Completed Partial Thromboplastin Time Stat Lab 12/06/24 17:45 Completed Phosphorous Stat Lab 12/06/24 17:45 Completed Procalcitonin Stat Lab 12/06/24 17:45 Completed Prothrombin Time with INR Stat Lab 12/06/24 17:45 Completed Troponin I Stat Lab 12/06/24 17:45 Completed Urinalysis, C/S if Indicated Stat Lab 12/06/24 18:39 Completed Acetaminophen Ivpb [Ofirmev Inj] Med 12/06/24 17:21 Discontinued 1,000 mg in 100 ml IV X1 Piper/Tazo 3.375 gm Premix [Zosyn] Med 12/06/24 17:34 Discontinued 3.375 gm in 50 ml IV X1 Ringers Lactated 1000 ml [Lactated Ringers] 1,000 ml Med 12/06/24 17:20 Discontinued IV 999 mls/hr cefTRIAXone/D5w 1gm IV premix [Rocephin/D5w 1gm IV Med 12/06/24 17:24 Discontinued premix] 1 gm in 50 ml IV X1 Oxygen Delivery NOW RT 12/06/24 17:20 Completed Vital Signs Vital signs: Vital Signs Temperature 101 F H 12/06/24 17:28 Pulse Rate 82 12/06/24 17:28 Respiratory Rate 22 H 12/06/24 17:28 Blood Pressure 152/72 H 12/06/24 17:28 Pulse Oximetry (%) 96 12/06/24 17:28 Oxygen Delivery Method Room Air 12/06/24 17:28 Discharge Plan Plan Patient Disposition: HOME (Self Care) Patient condition on transfer: Stable Prescriptions/Referrals Prescriptions/Med Rec: New ondansetron 4 mg tablet,disintegrating 4 mg PO Q8H Qty: 10 0RF ondansetron 4 mg tablet,disintegrating 4 mg PO Q8H Qty: 10 0RF No Action tamsulosin 0.4 mg capsule 0.4 mg PO QHS metoprolol succinate 25 mg Tablet Extended Release 24 Hr 25 mg PO QDAY insulin glargine [Lantus Solostar U-100 Insulin] 100 unit/mL (3 mL) Insulin Pen 46 unit SUBCUT HS Rx Instructions: INJECT 46 UNITS AT BEDTIME atorvastatin 80 mg tablet 80 mg PO QDAY Patient Comments: take 1 tablet by mouth once daily amlodipine 10 mg tablet 10 mg PO QDAY Patient Comments: take 1 tablet by mouth once daily Referrals: Prince De La Rosa MD [Primary Care Provider, Medical] - In 1 week Problem List Clinical Impression: Nausea, Fever Patient/Caregiver Discharge Instructions Other Activity Instructions:: Take the medications as needed. Take Tylenol ibuprofen for pain if is a worsening of symptoms return. We did not find any acute infection on the assessment of your body during your visit today. Additional Instructions: Use the medicine prescribed for nausea, take Tylenol for the fever if there is a worsening of symptoms in spite of these medications return the emergency room immediately for further evaluation. Print Language: Panamanian Stand Alone Forms: Katelyn Award Info., Work/School Release, Patient Portal Info Letter PA/ELVER Supervising Physician PA/OCCUPATIONAL THERAPIST'S ASSISTANT Supervising Physician: Eber Easley ENP [facility] Clinical Information Provided by patient and EMS Medical [facility] and [facility] Meds/Rx Considered, not Ordered None Labs/Rad/Tests considered, not Ordered None EKG EKG Interpretation narrative: EKG performed at 1730 shows a ventricular rate of 81 [place] interval of 233 QRS of 85 QTc of 381 sinus rhythm first-degree block. When compared to old EKG of January 2023 there are no significant changes Lab Interpretation Labs: interpreted by de Lab(s) interpretation(s): CBC shows no leukocytosis and H&H of 11.6 and 34.9 respectively no thrombocytopenia Coags within acceptable limits CMP shows a sodium 134 glucose of 278 no electrolyte imbalances renal impairment transaminitis or T. bili elevation. Lactic at 1.5 LDH at 276 Troponin and BNP within acceptable limits Lipase 47 Procalcitonin at 0.06. Imaging Provider imaging interpretation(s): Chest x-ray is read as mild bilateral pneumonia. Abdomen pelvis shows no acute finding mass lesion, and no pneumonia in the lung field bases. Radiology reports / interpretation(s): I am not sure what causes fever mostly viral as the influenza and COVID are negative patient will be discharged home to follow-up with her primary care provider if there is worsening of symptoms he can return the emergency room immediately for further evaluation. Medication Administration(s) Medication Administration History Discontinued Medications Lactated Ringer's (Lactated Ringers) 1,000 mls @ 999 mls/hr IV .Q1H1M ONE Stop: 12/06/24 18:20 Last Infusion: 12/06/24 20:28 Dose: Infused Documented By: Admin: 12/06/24 18:06 Dose: 999 mls/hr Documented By: EF Acetaminophen (Ofirmev Inj) 1,000 mg in 100 mls @ 250 mls/hr IV X1 ONE Stop: 12/06/24 17:44 Last Infusion: 12/06/24 18:30 Dose: Infused Documented By: Admin: 12/06/24 18:06 Dose: 250 mls/hr Documented By: EF Ceftriaxone Sodium/Dextrose (Rocephin/D5w 1gm Iv Premix) 1 gm in 50 mls @ 100 mls/hr IV X1 ONE Stop: 12/06/24 17:53 Last Admin: 12/06/24 18:18 Dose: Not Given Documented By: EF Non-Admin Reason: Cancelled by Provider Piperacillin/Tazobactam/Dextrose (Zosyn) 3.375 gm in 50 mls @ 100 mls/hr IV X1 ONE Stop: 12/06/24 18:03 Last Infusion: 12/06/24 18:36 Dose: Infused Documented By: Admin: 12/06/24 18:06 Dose: 100 mls/hr Documented By: EF
[2024-12-06 17:28] VITALS: BP 152/72; PULSE 82; RESP 22; TEMP 38.3; O2SAT 96
[2024-12-06 17:48] VITALS: PULSE 81; RESP 16; RESP 96; BMI 29.7
[2024-12-06 17:57] LABS: Lactate (Lactic Acid) 1.5 mMol/L (0.4-2.0)
[2024-12-06 18:03] LABS: Basophils # (Auto) 0.0 Thou/mm3 (0.0-0.2); Basophils % (Auto) 0 % (0-2.5); Eosinophils # (Auto) 0.0 Thou/mm3 (0.0-0.5); Eosinophils % (Auto) 0 % (0-10); Hematocrit 34.9 % (41.0-53.0); Hemoglobin 11.6 g/dL (13.5-16.0); Immature Granulocytes Auto 0.03 Thou/mm3 (0.00-0.00); Lymphocytes # (Auto) 0.8 Thou/mm3 (1.0-4.8); Lymphocytes % (Auto) 16 % (10-50); Mean Corpuscular HGB Conc 33.2 g/dl (31.0-37.0); Mean Corpuscular Hemoglobin 27.7 pg (25.0-35.0); Mean Corpuscular Volume 83 fL (80-100); Monocytes # (Auto) 0.5 Thou/mm3 (0.0-0.8); Monocytes % (Auto) 10 % (0-12); Neutrophils # (Auto) 3.8 Thou/mm3 (1.8-7.7); Neutrophils % (Auto) 73 % (37-80); Nucleated Red Blood Cell # 0.00 Thou/mm3 (0.00-0.00); Nucleated Red Blood Cell % 0 /100 WBC (0); Platelet Count 180 Thou/mm3 (140-440); RDW Standard Deviation 43.0 fL (35.1-43.9); Red Blood Count 4.19 Miln/mm3 (4.50-5.90); White Blood Count 5.2 Thou/mm3 (3.8-10.6)
[2024-12-06] MEDS: RINGERS LACTATED 1000 ML 1,000 ML 999 ML IV (18:06)
[2024-12-06] MEDS: ACETAMINOPHEN IVPB 1,000 MG/100 ML VIAL 250 MG IV (18:06)
[2024-12-06] MEDS: PIPER/TAZO 3.375 GM PREMIX 3.375 GM/50 ML BAG IV (18:06)
[2024-12-06 18:15] LABS: INR 1.0 (0.9-1.3); Partial Thromboplastin Time 25.9 Seconds (22.0-36.0); Prothrombin Time 11.1 Seconds (9.0-12.2)
[2024-12-06 18:18] LABS: B-Type Natriuretic Peptide < 20 pg/mL (0-100)
[2024-12-06 18:26] LABS: Alanine Aminotransferase 8 U/L (10-49); Albumin, Serum 4.1 gm/dL (3.4-4.8); Albumin/Globulin Ratio 1.4 (1.2-2.2); Alkaline Phosphatase 116 U/L (46-116); Anion Gap 12 (7-16); Aspartate Amino Transferase 31 U/L (0-34); BUN/Creatinine Ratio 15 Ratio (12-20); Bilirubin,Total 0.7 mg/dL (0.3-1.2); Blood Urea Nitrogen 16 mg/dL (9-23); Calcium 9.8 mg/dL (8.3-10.6); Calcium (Corrected) 9.8 mg/dL (8.5-10.1); Carbon Dioxide 23.5 mMol/L (20.0-31.0); Chloride 99 mMol/L (98-107); Creatinine (Component) 1.1 mg/dL (0.6-1.3); Estimated Creatinine Clearance 58.8 mL/min (>60); Globulin 3.0 gm/dL (2.3-3.5); Glucose 278 mg/dL (74-106); LDH (Lactate Dehydrogenase) 276 U/L (120-246); Lipase 47 U/L (12-53); Magnesium 1.6 mg/dL (1.6-2.6); Osmolality,Calculated 279 (275-295); Phosphorous 2.7 mg/dL (2.4-5.1); Potassium 4.1 mMol/L (3.4-5.1); Procalcitonin 0.06 ng/ml (0.0-0.49); Sodium 134 mMol/L (136-145); Total Protein 7.1 gm/dL (5.7-8.2); Troponin I < 0.020 ng/mL (0.0-0.045); eGFR > 60 See Note
[2024-12-06 19:00] LABS: Collection Type, Urine Clean Catch; Squamous Epithelial Cell,Urine 0 /hpf (0-5); WBC,Urine 0 /hpf (0-5)
--- NOTE | 2024-12-06 19:11 | XR_ITS ---
Examination: CT abdomen and pelvis without contrast. Coronal 3-D reconstructions. Sagittal 2-D reconstructions. Date and time of exam:December 06, at 2016 hrs. Indications: History partial nephrectomy fever generalized abdominal pain today CTDI: vol (mGy): 9.28 DLP: (mGycm): 611 Technique: Axial images of the abdomen have been obtained, 3 mm slice thickness Intravenous contrast material has not been administered. Low dose protocols were performed. One or more of the following dose reduction techniques were used; automated exposure control, adjustment of the mA and/or KV according to patient size, use of iterative reconstruction technique. Findings: No pneumonia identified No focal liver or splenic lesions No gallstones No pancreatic or adrenal mass. No solid renal mass lesion on this noncontrast study Abdominal aortic calcification no aneurysmal dilatation Abundant stool in the right colon Normal appendix No bowel obstruction or diverticulitis Urinary bladder intact Impression: No solid renal mass lesion on this noncontrast study Normal appendix. No bowel obstruction diverticulitis or free air Negative for pneumonia at the lung bases
[2024-12-06 19:26] LABS: Bilirubin,Urine Negative (Negative); Blood,Urine Negative (Negative); Clarity,Urine Clear (Clear/Hazy); Color,Urine Lt-Yellow (Lt Yel-Yel); Culture Indicated,Urine Not Indicated; Glucose, Urine 4+ (Negative); Ketones,Urine Negative (Negative); Leukocyte Esterase,Urine Negative (Negative); Nitrite,Urine Negative (Negative); PH,Urine 6.0 (5.0-7.0); Protein,Urine Trace (Neg - Trace); RBC,Urine < 1 /hpf (0-3); Specific Gravity,Urine 1.016 (1.001-1.035); Urobilinogen,Urine Negative mg/dL (0.0-1.0)
[2024-12-06 20:29] VITALS: BP 136/79; PULSE 60; PULSE 98; RESP 13; RESP 60; O2SAT 98
[2024-12-06 21:09] VITALS: BP 136/79; PULSE 65; RESP 20; O2SAT 96
== END 2024-12-06 21:10 | disposition home or self-care (01) ==
PROVIDERS: Registered Nurse General Practice; Emergency Provider Emergency Medicine; PCP Family Medicine
DX: J18.9 Pneumonia, unspecified organism (principal); I44.0 Atrioventricular block, first degree; E78.00 Pure hypercholesterolemia, unspecified; I10 Essential (primary) hypertension
CPT/HCPCS: 36415; 71045; 74176; 80053; 81001; 83605; 83615; 83690; 83735; 83880; 84100; 84145; 84484; 85025; 85610; 85730; 87040; 87400; 87811; 93005; 96361; 96365; 99284; J0131; J2543; J7120

== ENCOUNTER 2025-02-07 06:40 | Day surgery (SDC) | payer MEDICARE, MEDICAID, SELFPAY ==
[2025-02-04 12:30] VITALS: BMI 29.9
[2025-02-07] VITALS (11 sets, daily range): BP systolic 138–188; BP diastolic 69–91; PULSE 51–65; RESP 12–19; TEMP 36.4–36.6; O2SAT 96–100; BMI 29.9
[2025-02-07] MEDS: MIDAZOLAM INJ 1 MG/ML VIAL 2 ML (ASD USE ONLY) 2 MG IVP (07:24)
[2025-02-07] MEDS: fentaNYL CIT INJ 50 mCg/ML AMP 2ML (ASD USE ONLY) IVP (07:24)
[2025-02-07] MEDS: SODIUM CHLORIDE 0.9% 500 ML 500 ML 125 ML IV (07:24)
== END 2025-02-07 08:26 | disposition home or self-care (01) ==
PROVIDERS: Referring Provider Surgery; Visit Provider Surgery
PROC: 0DBE8ZX Excision of Large Intestine, Via Natural or Artificial Opening Endoscopic, Diagnostic (ICD-10-PCS; CPT 45380; principal; 2025-02-07 08:00)
DX: K57.30 Diverticulosis of large intestine without perforation or abscess without bleeding (principal); K64.1 Second degree hemorrhoids; R10.31 Right lower quadrant pain; K42.9 Umbilical hernia without obstruction or gangrene; E11.9 Type 2 diabetes mellitus without complications; I10 Essential (primary) hypertension; Z79.899 Other long term (current) drug therapy; Z79.4 Long term (current) use of insulin
CPT/HCPCS: 45378; A4649; J1200; J2250; J3010; J7999

== ENCOUNTER → 2025-02-21 | Outpatient (CLI) | payer MEDICARE, MEDICAID, SELFPAY ==
[2025-02-21 15:31] LABS: Collection Type, Urine Clean Catch; WBC,Urine 0 /hpf (0-5)
[2025-02-21 15:56] LABS: Glucose Estimated Average 203 mg/dL (80-131); Hemoglobin A1C 8.7 % Hgb (4.8-6.0)
[2025-02-21 15:58] LABS: Alanine Aminotransferase 15 U/L (10-49); Albumin, Serum 4.7 gm/dL (3.4-4.8); Alkaline Phosphatase 106 U/L (46-116); Anion Gap 10 (7-16); Aspartate Amino Transferase 24 U/L (0-34); BUN/Creatinine Ratio 10 Ratio (12-20); Bilirubin,Direct 0.2 mg/dL (0.0-0.3); Bilirubin,Total 0.6 mg/dL (0.3-1.2); Blood Urea Nitrogen 13 mg/dL (9-23); Calcium 9.8 mg/dL (8.3-10.6); Carbon Dioxide 33.4 mMol/L (20.0-31.0); Cardiac Risk Estimate 4.8 RATIO (4.0-6.7); Chloride 100 mMol/L (98-107); Cholesterol 149 mg/dL (132-200); Creatinine (Component) 1.3 mg/dL (0.6-1.3); Glucose 129 mg/dL (74-106); HDL Cholesterol 31 mg/dL (40-60); LDL Cholesterol,Calculated 73 mg/dL (0-130); Osmolality,Calculated 287 (275-295); Phosphorous 3.4 mg/dL (2.4-5.1); Potassium 4.0 mMol/L (3.4-5.1); Sodium 143 mMol/L (136-145); Total Protein 7.9 gm/dL (5.7-8.2); Triglycerides 225 mg/dL (30-150); eGFR 57 See Note
[2025-02-21 16:01] LABS: Basophils # (Auto) 0.0 Thou/mm3 (0.0-0.2); Basophils % (Auto) 1 % (0-2.5); Eosinophils # (Auto) 0.1 Thou/mm3 (0.0-0.5); Eosinophils % (Auto) 2 % (0-10); Hematocrit 38.9 % (41.0-53.0); Hemoglobin 12.8 g/dL (13.5-16.0); Immature Granulocytes Auto 0.01 Thou/mm3 (0.00-0.00); Lymphocytes # (Auto) 1.6 Thou/mm3 (1.0-4.8); Lymphocytes % (Auto) 41 % (10-50); Mean Corpuscular HGB Conc 32.9 g/dl (31.0-37.0); Mean Corpuscular Hemoglobin 27.2 pg (25.0-35.0); Mean Corpuscular Volume 83 fL (80-100); Monocytes # (Auto) 0.5 Thou/mm3 (0.0-0.8); Monocytes % (Auto) 13 % (0-12); Neutrophils # (Auto) 1.7 Thou/mm3 (1.8-7.7); Neutrophils % (Auto) 44 % (37-80); Nucleated Red Blood Cell # 0.00 Thou/mm3 (0.00-0.00); Nucleated Red Blood Cell % 0 /100 WBC (0); Platelet Count 203 Thou/mm3 (140-440); RDW Standard Deviation 40.3 fL (35.1-43.9); Red Blood Count 4.71 Miln/mm3 (4.50-5.90); White Blood Count 3.9 Thou/mm3 (3.8-10.6)
[2025-02-21 16:08] LABS: Bilirubin,Urine Negative (Negative); Blood,Urine Negative (Negative); Clarity,Urine Clear (Clear/Hazy); Culture Indicated,Urine Not Indicated; Glucose, Urine Negative (Negative); Ketones,Urine Negative (Negative); Leukocyte Esterase,Urine Negative (Negative); Nitrite,Urine Negative (Negative); PH,Urine 7.5 (5.0-7.0); Protein,Urine Negative (Neg - Trace); RBC,Urine < 1 /hpf (0-3); Specific Gravity,Urine 1.006 (1.001-1.035); Squamous Epithelial Cell,Urine < 1 /hpf (0-5); Urobilinogen,Urine Negative mg/dL (0.0-1.0)
[2025-02-21 16:30] LABS: Color,Urine Lt-Yellow (Lt Yel-Yel); Sperm,Urine Present
[2025-02-21 17:59] LABS: Creatinine MALB Rnd Ur 29 mg/dL (30-125); Microalbumin Creat Ratio 131 mg/gCrea (<30); Microalbumin, Random Urine 38 mg/L (0-300); Protein Total, Random Urine 13 mg/dL (1-14)
[2025-02-28 15:38] LABS: Albumin 4.1 g/dL (3.8-4.8); Alpha-1-Globulin 0.3 g/dL (0.2-0.3); Alpha-2-Globulin 0.7 g/dL (0.5-0.9); Beta-1-Globulin 0.4 g/dL (0.4-0.6); Beta-2-globulin 0.6 g/dL (0.2-0.5); Gamma Globulin 1.4 g/dL (0.8-1.7)
[2025-03-01 07:06] LABS: Protein, total, serum 7.5 g/dL (6.1-8.1)
== END | disposition home or self-care (01) ==
PROVIDERS: PCP Family Medicine; Referring Provider Internal Medicine Nephrology; Visit Provider Internal Medicine Nephrology
DX: E11.22 Type 2 diabetes mellitus with diabetic chronic kidney disease (principal); N18.2 Chronic kidney disease, stage 2 (mild); R80.9 Proteinuria, unspecified; R94.5 Abnormal results of liver function studies; E78.00 Pure hypercholesterolemia, unspecified
CPT/HCPCS: 36415; 80048; 80061; 80076; 81001; 82043; 82570; 83036; 84100; 84155; 84156; 84165; 85025

== ENCOUNTER 2025-02-22 13:12 | Outpatient (RCR) | payer MEDICARE, MEDICAID, SELFPAY ==
--- NOTE | 2025-02-27 18:38 | CTCFLWUP_ITS ---
Patient: BRAD MORALES : 1950 Page 2 of 10 FOLLOW UP NOTE DATE OF SERVICE: 02/22/2025 NAME: BRAD MORALES ACCOUNT: [id number] : 1950 AGE: 74 INTERVAL HISTORY: Brad Morales, a male with lung nodules and history of renal cancer status post nephrectomy (2018) and valley fever, presented for nodule follow-up. Recent imaging showed most nodules stable except one increased to 11mm. Previous biopsies were negative for malignancy. Given the diagnostic uncertainty between metastatic renal cancer versus valley fever manifestation, management includes CT chest due now , Eric testing to help differentiate etiology, and possible rebiopsy if further growth occurs. His history includes valley fever and left nephrectomy (11/26/2018). Multiple lung biopsies ([id number]) were negative for malignancy. September 2022 imaging showed 19mm right tracheobronchial lymph nodes wi thout new nodules or metastatic disease. He takes Diflucan for valley fever and amlodipine, benazepril, and Flomax for hypertension/BPH. Subjective: Chief Complaint Follow-up for lung nodules, history of renal cancer History of Present Illness Brad Morales is a male patient with a history of renal cancer, status post nephrectomy in 2018, and valley fever. He presents for follow-up of lung nodules. The patient has been under surveillance for lung nodules, which were previously biopsied and found to be negative for malignancy. Recent imaging shows that most of the lung nodules remain stable, except for one which has increased in size to 11 millimeters. The patient has also been referred to nephrology in the past, though it is unclear if he has seen the kidney doctor as recommended. Given the patient's history of valley fever, there is uncertainty about the etiology of the enlarging lung nodule. The plan is to repeat imaging in 6 months to monitor for further growth and consider rebiopsy if necessary. Objective: Laboratory, Imaging, and Diagnostic Test Results - CT scan of the chest (date not specified): - Multiple lung nodules present - One lung nodule increased in size to 11 mm - Other lung nodules stable - Previous biopsy of lung nodules (date not specified): Negative for malignancy Surgical History - Left nephrectomy on 11/26/2018 for clear-cell carcinoma of the left kidney - Right lung mass biopsy on 08/29/2019 - Lung biopsy on 01/06/2020 - Lung biopsy on 01/03/2022 Medications and Supplements - Diflucan - Prescribed for valley fever. 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 REASON FOR TODAY?S VISIT: This is office follow-up visit. Mr. Morales is here at [facility]. He denies any complaints today. Denies any cough, chest pain, abdominal pain or leg cramps. A recent CT scan of the chest abdomen done on 10/21/2022 showed new small pulmonary nodules. Currently patient is back on Diflucan. DATE OF DIAGNOSIS: STAGE/TNM: TREATMENT HISTORY: Care?Plan Start?Date Cycle Day Intent HISTORY OF PRESENT ILLNESS: Brad Argueta is a 74-year-old [place] speaking male 2019: Patient had colonoscopy done. 07/09/2018: CT scan of the chest abdomen and pelvis with IV contrast showed mediastinal adenopathy with numerous bilateral pulmonary nodules, enhancing solid tumor mass in the medial aspect of the left kidney. 08/28/2018: Left kidney biopsy?clear cell renal cell carcinoma. Pulmonary nodule CT-guided biopsy on the same day showed caseating granulomatous inflammation. Positive for scant fungal elements. 10/08/2018: Patient was started on Diflucan. 10/12/2018: QuantiFERON TB test negative 10/26/2018 cocci complement fixation positive , 1: 8 Cocci immunodiffusion serum positive IgG 11/26/2018: Patient had ureteroscopic left partial nephrectomy?cystoscopy and ureteral stent placement at [facility]. Pathology showed 2.5 cm clear-cell renal cell carcinoma ISU P grade 3/4, confined to the kidney. No lymphovascular invasion or sarcomatoid or rhabdoid features identified. It was staged as a pT1a, NX, MX disease. 01/27/2019: CT scan of the chest abdomen and pelvis with contrast?IMPRESSION: Stable mediastinal adenopathy Bilateral pulmonary nodules, several are smaller and some pulmonary nodules are no longer identified compared to the July 09, 2018 exam Cystlike area posterior margin left kidney, 4 cm in dimension, not seen on the July 09, 2018 exam Recommend renal sonography follow-up 07/22/2019: CT scan of the chest abdomen and pelvis with IV contrast? 08/18/2011: Patient decided not to have the lung nodules biopsied. 12/20/2019: CT scan of the chest, abdomen and pelvis with IV contrast? 01/06/2020: CT-guided biopsy of the right upper lobe pulmonary mass lesion? 08/16/2020: CT scan of the chest abdomen and pelvis with IV contrast 07/25/2021: CT scan of the chest, abdomen and pelvis with IV contrast to evaluate the cause for abdominal pain of 1 day duration? 08/28/2021: CT-guided biopsy of the right lung lower lobe nodule? 11/20/2021: CT scan of the chest abdomen and pelvis with IV contrast? 01/03/2022: CT-guided biopsy of the right lung lesion? 01/22/2022: X-rays of both hips as well as both femurs? 02/14/2022: Bone scan negative for metastatic disease. 10/21/2022: CT scan of the chest and abdomen with contrast? OTHER MEDICAL HISTORY/CONDITIONS: FAMILY HISTORY: SOCIAL HISTORY: MEDICATIONS: 1. amlodipine - 5 mg 1 tab Daily 2. benazepril-hydrochlorothiazide - 20-12.5 mg 1 tab Daily 3. carvedilol - 25 mg 1 tab Daily 4. Lantus Solostar - 100 unit/mL (3 mL) 46 Unit Daily 5. omeprazole - 40 mg 1 Capsule Daily 6. tamsulosin - 0.4 mg 1 Capsule Daily Medications Last Reconciled by Gisell Patten MD on 02/22/2025 ALLERGIES: No Known Drug Allergies REVIEW OF SYSTEMS: A complete 14-point review of systems was performed and is negative except as noted in interval history. PHYSICAL EXAMINATION: VITAL SIGNS: Temperature?96.2, B/P?167/77, Oxygen?Saturation?97% Weight?184?lbs PAIN: 3 - Between mild and moderate pain ECOG Performance Status: None GENERAL APPEARANCE: Appears well, in no apparent distress, appropriately interactive. HEENT: Normocephalic, no temporal wasting, normal conjunctiva, no scleral icterus, normal hearing, lips without lesions, neck normal range of motion. CARDIOVASCULAR: Not assessed. PULMONARY: Normal respiratory effort, no respiratory distress or use of accessory muscles, speaking in full sentences, no tachypnea. EXTREMITIES: No pedal edema or cyanosis. SKIN: Normal skin appearance. NEUROLOGIC: Alert and oriented x4. PSHYCHIATRIC: Appropriate affect, mood normal, behavior normal, intact thought and speech. LABORATORY DATA: I have personally reviewed and interpreted each of the patient?s relevant lab tests, abnormal findings are below: Date 12/06/24 02/21/25 ??WHITE?BLOOD?COUNT?(Thou/mm3) 5.2 3.9 ??RED?BLOOD?COUNT?(Miln/mm3) 4.19?L 4.71 ??HEMOGLOBIN?(gm/dl) 11.6?L 12.8?L ??HEMATOCRIT?(%) 34.9?L 38.9?L ??PLATELET?COUNT?(Thou/mm3) 180 203 ??NEUTROPHILS?%,?AUTO?(%) 73 44 ??LYMPH?%,?AUTO?(%) 16 41 ??NEUTROPHILS,?AUTO?(Thou/mm3) 3.8 1.7?L ??GLUCOSE,RANDOM?(mg/dL) ? 129?H ??BLOOD?UREA?NITROGEN?(mg/dL) ? 13 ??CREATININE?(mg/dL) ? 1.30 ??SODIUM?(mmol/L) ? 143 ??POTASSIUM?(mmol/L) ? 4.0 ??CHLORIDE?(mmol/L) ? 100 ??AST/SGOT?(Unit/L) ? 24 ??ALT/SGPT?(Unit/L) ? 15 ??ALKALINE?PHOSPHATASE?(Unit/L) ? 106 ??BILIRUBIN,?TOTAL?(mg/dL) ? 0.6 ??PROTEIN?TOTAL?(gm/dl) ? 7.9 ??ALBUMIN,?SERUM?(gm/dl) ? 4.7 ??CALCIUM,?SERUM?(mg/dL) ? 9.8 ASSESSMENT/PLAN: Clear cell carcinoma of the left kidney. Status post left partial nephrectomy. No evidence of recurrence History of pulmonary coccidiomycosis infection. Bone scan is also negative for bone mets. CT-guided biopsy of the right lung lesion is negative for malignancy (01/03/2022). Repeat CT scan done on 11/20/2021 showed enlarging right tracheobronchial lymph node as well as other lesions as described above. CT-guided biopsy of the right lower lobe pulmonary nodule was nondiagnostic as described above (08/28/2021). Currently Mr. Morales is on Diflucan for valley fever. Brad Morales, male patient with history of renal cancer status post nephrectomy in 2019, presenting for follow-up of lung nodules. Lung Nodules Assessment: Patient has multiple lung nodules that have been under surveillance. Most nodules are stable, but one has increased in size to 11 mm. Previous biopsy of the nodules was negative. The etiology of the nodules is unclear, as the patient has a history of both renal cancer and valley fever, either of which could potentially cause lung nodules. Given the growth of one nodule, further evaluation is warranted. Plan: - Order CT scan of the chest in 6 months for reassessment of lung nodules - Order Eric testing to help differentiate between cancerous and non-cancerous etiology of the nodules - If the nodule continues to grow on follow-up imaging, consider repeat biopsy History of Renal Cancer Assessment: Patient has a history of renal cancer for which he underwent nephrectomy in 2019. Currently being monitored for potential metastatic disease, particularly in light of the lung nodules. Plan: - Continue surveillance with imaging studies as outlined in the lung nodules plan - Await results of Eric testing to guide further management Valley Fever Assessment: Patient has a history of valley fever, which is being considered as a potential cause of the lung nodules. Plan: - Continue monitoring lung nodules as outlined in the lung nodules plan - Consider valley fever as a differential diagnosis pending results of further testing - Clear-cell carcinoma of the left kidney - Valley fever - Hypertension ORDERS: Order # Description [id number] Comprehensive Metabolic Panel - 12 + CBC with Auto Diff + MD Follow Up [id number] Scan + Chest + With W/O Contrast RETURN TO CLINIC: I reviewed the diagnosis, prognosis, and recommended treatment/procedure options with the patient (and/or their legal community service representative), including the potential benefits, risks, side effects and alternative therapies. We also discussed the option of no treatment and the possibility of clinical trial participation, if applicable. All questions were addressed, and they demonstrated understanding. They provided informed consent to proceed with the proposed plan of care. BILLING AND COMPLIANCE: I reviewed external records from providers outside my specialty as summarized above. I spent a total of 50 minutes on this patient?s care on the day of their visit excluding time spent related to any billed procedures. This time includes time spent with the patient as well as time spent documenting in the medical record, reviewing patients records and tests, obtaining history, placing orders, communicating with other healthcare professionals, counseling the patient, family or caregiver, and/or care coordination for the diagnoses above. Electronically Signed by: Jaya Kim MD T: 6:36 PM CC: PCP: Jake De La Rosa Referring: Jake De La Rosa This document was completed utilizing speech recognition software. Grammatical errors, random word insertions, pronoun errors, and incomplete sentences are an occasional consequence of this system due to software limitations, ambient noise, and hardware issues. Any formal questions or concerns about the content, text or information contained within the body of this dictation should be directly addressed to the provider for clarification.
== END 2025-02-27 23:59 | disposition home or self-care (01) ==
LOC: SCTC 13:12
PROVIDERS: PCP Family Medicine; Referring Provider Family Medicine; Visit Provider Internal Medicine Hematology & Oncology
DX: R91.8 Other nonspecific abnormal finding of lung field (principal); Z85.528 Personal history of other malignant neoplasm of kidney; Z90.5 Acquired absence of kidney; Z86.19 Personal history of other infectious and parasitic diseases
CPT/HCPCS: 99212; G0463

== ENCOUNTER → 2025-03-08 | Outpatient (CLI) | payer MEDICARE, MEDICAID, SELFPAY ==
--- NOTE | 2025-03-08 11:00 | XR_ITS ---
Examination: CT chest with intravenous contrast CT chest without intravenous contrast 2-D reconstructions Date and time of exam: March 08, 2025, 1113 hours, comparison August 18, 2024, October 21, 2022 INDICATIONS: History pulmonary nodules, 1 right upper lobe pulmonary nodule measured [address] study August 18, 2024 compared to [address] chest October 21, 2022 CTDI:vol (mGy) 25.9 DLP: (mGycm) 990 Technique: Multiple axial sections of the thorax have been obtained. 3 mm slice thickness, from the hemidiaphragms to above the apices of the lungs. Mediastinal and lung density settings have been obtained. Intravenous contrast administered 60 cc [id number]. Noncontrast images have also been obtained. 2-D sagittal coronal images obtained. Low dose protocols were performed. One or more of the following dose reduction techniques were used; automated exposure control, adjustment of the mA and/or KV according to patient size, use of iterative reconstruction technique. Findings: AP dimension ascending thoracic aorta 4.1 cm Pulmonary artery segments are not enlarged, no pulmonary artery emboli Mild enlargement cardiac contour No paratracheal tracheobronchial or bronchopulmonary adenopathy Stable bilateral pulmonary nodules compared to August 18, 2024 Scarring in the right apex No new pulmonary nodules No interval pneumonia or pulmonary edema Minor scarring at the lung bases No visualized liver or splenic lesion Contracted gallbladder No pancreatic or adrenal mass Kidneys partially visualized no hydronephrosis Moderate osteopenia IMPRESSION: Mild aneurysmal dilatation ascending thoracic aorta Negative for pulmonary artery emboli Negative for mediastinal lymphadenopathy Stable bilateral pulmonary nodules compared to August 18, 2024 CT chest study
== END | disposition home or self-care (01) ==
PROVIDERS: PCP Family Medicine; Referring Provider Internal Medicine Hematology & Oncology; Visit Provider Internal Medicine Hematology & Oncology
DX: I71.21 Aneurysm of the ascending aorta, without rupture (principal); R91.8 Other nonspecific abnormal finding of lung field; C34.91 Malignant neoplasm of unspecified part of right bronchus or lung; C34.92 Malignant neoplasm of unspecified part of left bronchus or lung
CPT/HCPCS: 71270; A4649; Q9967

== ENCOUNTER 2025-03-25 03:56 | Emergency (ER) | payer MEDICARE, MEDICAID, SELFPAY ==
[2025-03-25 04:18] VITALS: BP 173/82; PULSE 61; PULSE 62; RESP 18; RESP 23; TEMP 36.5; O2SAT 98; O2SAT 99; BMI 30.8
--- NOTE | 2025-03-25 05:35 | XR_ITS ---
EXAMINATION: AP chest single view TECHNIQUE: AP portable upright chest single view Date and time: March 25, 2025, 0553 hours, comparison 12/06/2024 INDICATIONS: Shortness of breath chills today FINDINGS: Mild prominence left ventricle Mild vascular congestion. Suspicious for early pneumonia at the right lung base No pulmonary edema Prominent osteopenia IMPRESSION: Suspicious for early pneumonia at the right lung base
--- NOTE | 2025-03-25 05:35 | EKG_ITS ---
[facility] Test Date: 2025-03-25 Pat Name: MIREILLE MORALES Department: Room: - Gender: Male [employer]: : 1950 Requested By: Jose Iverson Order Number: [id number] Reading MD: Jose Iverson Measurements Intervals [place] Rate: 49 P: 55 [place]: 263 QRS: -36 QRSD: 102 T: 11 QT: 434 QTc: 394 Interpretive Statements SINUS BRADYCARDIA WITH FIRST DEGREE AV BLOCK VOLTAGE CRITERIA FOR LVH [MEETS CRITERIA IN ONE OF: R(aVL), S(V1), R(V5), R(V5/V6)+S(V1)] POSSIBLE ANTERIOR MYOCARDIAL INFARCTION , OF INDETERMINATE AGE [30 ms Q WAVE IN V3/V4, OR R < 0.2 mV IN V4] INFERIOR MYOCARDIAL INFARCTION , PROBABLY OLD [40+ ms Q WAVE AND/OR ST/T ABNORMALITY IN II/aVF] Compared to ECG 12/06/2024 17:31:31 Sinus rhythm no longer present Myocardial infarct finding still present /store/S0/[id number].pdf
[2025-03-25 06:21] LABS: Basophils # (Auto) 0.0 Thou/mm3 (0.0-0.2); Basophils % (Auto) 1 % (0-2.5); Eosinophils # (Auto) 0.1 Thou/mm3 (0.0-0.5); Eosinophils % (Auto) 1 % (0-10); Hematocrit 33.9 % (41.0-53.0); Hemoglobin 11.7 g/dL (13.5-16.0); Immature Granulocytes Auto 0.04 Thou/mm3 (0.00-0.00); Lymphocytes # (Auto) 0.9 Thou/mm3 (1.0-4.8); Lymphocytes % (Auto) 16 % (10-50); Mean Corpuscular HGB Conc 34.5 g/dl (31.0-37.0); Mean Corpuscular Hemoglobin 27.3 pg (25.0-35.0); Mean Corpuscular Volume 79 fL (80-100); Monocytes # (Auto) 0.6 Thou/mm3 (0.0-0.8); Monocytes % (Auto) 10 % (0-12); Neutrophils # (Auto) 4.1 Thou/mm3 (1.8-7.7); Neutrophils % (Auto) 71 % (37-80); Nucleated Red Blood Cell # 0.00 Thou/mm3 (0.00-0.00); Nucleated Red Blood Cell % 0 /100 WBC (0); Platelet Count 197 Thou/mm3 (140-440); RDW Standard Deviation 37.6 fL (35.1-43.9); Red Blood Count 4.29 Miln/mm3 (4.50-5.90); White Blood Count 5.8 Thou/mm3 (3.8-10.6)
[2025-03-25 06:33] LABS: INR 1.0 (0.9-1.3); Partial Thromboplastin Time 26.4 Seconds (22.0-36.0); Prothrombin Time 11.1 Seconds (9.0-12.2)
[2025-03-25 06:37] LABS: B-Type Natriuretic Peptide 29 pg/mL (0-100)
[2025-03-25 06:39] LABS: Alanine Aminotransferase 13 U/L (10-49); Albumin, Serum 4.4 gm/dL (3.4-4.8); Albumin/Globulin Ratio 1.3 (1.2-2.2); Alkaline Phosphatase 96 U/L (46-116); Anion Gap 11 (7-16); Aspartate Amino Transferase 23 U/L (0-34); BUN/Creatinine Ratio 14 Ratio (12-20); Bilirubin,Total 0.5 mg/dL (0.3-1.2); Blood Urea Nitrogen 15 mg/dL (9-23); Calcium 9.2 mg/dL (8.3-10.6); Calcium (Corrected) 9.2 mg/dL (8.5-10.1); Carbon Dioxide 28.6 mMol/L (20.0-31.0); Chloride 104 mMol/L (98-107); Creatinine (Component) 1.1 mg/dL (0.6-1.3); Estimated Creatinine Clearance 59.9 mL/min (>60); Globulin 3.3 gm/dL (2.3-3.5); Glucose 111 mg/dL (74-106); Magnesium 1.6 mg/dL (1.6-2.6); Osmolality,Calculated 288 (275-295); Potassium 3.3 mMol/L (3.4-5.1); Sodium 144 mMol/L (136-145); Total Protein 7.7 gm/dL (5.7-8.2); Troponin I 0.024 ng/mL (0.0-0.045); eGFR > 60 See Note
--- NOTE | 2025-03-25 07:21 | PD.EDSOB ---
ED SOB =RME/HPI General Chief Complaint: Shortness of Breath/Dyspnea Stated Complaint: WEAKNESS, CHILLS, SOB Time Seen by Provider: 03/25/25 04:28 Arrival date/time: 03/25/25 03:56 RME / HPI RME / HPI Narrative: See HPI Related Data Home Medications ?Medication ?Instructions ?Recorded ?Confirmed insulin glargine 100 unit/mL (3 46 unit subcut HS 07/25/21 09/27/24 mL) subcutaneous pen (Lantus Solostar U-100 Insulin) metoprolol succinate 25 mg 25 mg PO QDAY 07/25/21 09/27/24 tablet,extended release 24 hr amlodipine 10 mg tablet 10 mg PO QDAY 01/04/22 09/27/24 atorvastatin 80 mg tablet 80 mg PO QDAY 01/04/22 09/27/24 tamsulosin 0.4 mg capsule 0.4 mg PO QHS 06/13/23 09/27/24 Previous Rx's ?Medication ?Instructions ?Recorded ondansetron 4 mg disintegrating 4 mg PO Q8H #10 tabs 12/06/24 tablet ondansetron 4 mg disintegrating 4 mg PO Q8H #10 tabs 12/06/24 tablet Allergies Allergy/AdvReac Type Severity Reaction Status Date / Time No Known Allergies Allergy Verified 02/04/25 12:30 Review of Systems Review of Systems Systems Reviewed: All systems reviewed, normal except as documented Past Medical History Past Medical History CARDIAC: Positive Cardiac Disorders (occassional chest pain- relieved with tylenol), Hypercholesterolemia and Hypertension GASTROINTESTINAL: Positive Gastrointestinal Disorders (constipation) GENITOURINARY: Positive Genitourinary Disorders, Renal Disease (left nephrectomy) and Benign Prostatic Hyperplasia MUSCULOSKELETAL: Positive Musculoskeletal Disorders, Arthritis and Fibromyalgia ENDOCRINE: Positive Endocrine Disorders and Diabetes Mellitus Type 2 PSYCHO/SOCIAL: Positive Depression OTHER HISTORY: Positive Hospitalization, Falls (unsteady gait- uses cane, walker or w/c depending on need), Cancer (kidney ca) and Lung Cancer (biopsy results pending) Surgical History SURGICAL: Positive Nephrectomy (left) Social History SMOKING STATUS: Never smoker ED Exam Narrative Physical exam: See MDM Course Quality Measures none Orders Category Date Time Status EKG (ED ONLY) *Do not use* NOW Care 03/25/25 05:35 Active EKG (ED ONLY) *Do not use* NOW Care 03/25/25 07:20 Completed EKG (ED Only) Stat Exams 03/25/25 05:35 Draft EKG (ED Only) Stat Exams 03/25/25 07:20 Ordered XR chest 1V portable Stat Exams 03/25/25 05:35 Completed B-Type Natriuretic Peptide Stat Lab 03/25/25 06:00 Completed Blood Culture (Lab) Stat Lab 03/25/25 11:09 Ordered CBC Stat Lab 03/25/25 06:00 Completed Comprehensive Metabolic Panel Stat Lab 03/25/25 06:00 Completed Drug Screen,Urine Stat Lab 03/25/25 06:10 Completed Magnesium Stat Lab 03/25/25 06:00 Completed Partial Thromboplastin Time Stat Lab 03/25/25 06:00 Completed Prothrombin Time with INR Stat Lab 03/25/25 06:00 Completed Troponin I Stat Lab 03/25/25 06:00 Completed Troponin I Stat Lab 03/25/25 07:30 Completed Troponin I Stat Lab 03/25/25 09:46 Completed Urinalysis, C/S if Indicated Stat Lab 03/25/25 11:09 Ordered Atropine Inj Vial Med 03/25/25 11:35 Discontinued 1 mg .ROUTE .STK-MED ONE Bivalirudin Ivpb [Angiomax Ivpb] Med 03/25/25 11:37 Discontinued 250 mg IV .STK-MED ONE EPINEPHrine Inj Abboject Med 03/25/25 11:37 Discontinued 1 mg .ROUTE .STK-MED ONE Heparin* 1000 UNITS/ML- 10 ML [Heparin 1000 UNITS/ML- Med 03/25/25 11:36 Discontinued 10 ML] 20,000 unit .ROUTE .STK-MED ONE Lidocaine 1% Vial 30 ml (Pf) [Xylocaine 1% Pf 30 ml] Med 03/25/25 11:36 Discontinued 30 ml .ROUTE .STK-MED ONE Metoprolol Tartrate Inj [Lopressor Inj] Med 03/25/25 11:35 Discontinued 15 mg .ROUTE .STK-MED ONE Midazolam Inj [Versed Inj] Med 03/25/25 11:35 Discontinued 2 mg .ROUTE .STK-MED ONE NALOXONE INJ (Vial) [Narcan Inj (Vial)] Med 03/25/25 11:36 Discontinued 1.2 mg .ROUTE .STK-MED ONE Nitroglycerin/D5w 50 MG IVPB [Nitroglycerin in D5w Ivpb Med 03/25/25 11:37 Discontinued ] 50 mg in 250 ml .ROUTE .STK-MED PHENYLEPHRINE INJ in NS [Dejon-synephrine Inj/Ns] Med 03/25/25 11:36 Discontinued 1,000 mcg .ROUTE .STK-MED ONE Potassium Chloride [K-Dur] Med 03/25/25 08:10 Discontinued 20 meq PO X1 ONE Verapamil Inj [Calan Inj] Med 03/25/25 11:36 Discontinued 5 mg .ROUTE .STK-MED ONE cefTRIAXone/D5w 1gm IV premix [Rocephin/D5w 1gm IV Med 03/25/25 11:09 Discontinued premix] 1 gm in 50 ml IV X1 fentaNYL INJ [Sublimaze Inj] Med 03/25/25 11:35 Discontinued 100 mcg .ROUTE .STK-MED ONE flumazeniL [Romazicon Inj] Med 03/25/25 11:36 Discontinued 1 mg .ROUTE .STK-MED ONE Vital Signs Vital signs: Vital Signs Temperature 97.7 F 03/25/25 04:18 Pulse Rate 61 03/25/25 04:18 Respiratory Rate 23 H 03/25/25 04:18 Blood Pressure 173/82 H 03/25/25 04:18 Pulse Oximetry (%) 99 03/25/25 04:18 Oxygen Delivery Method Room Air 03/25/25 04:18 Shortness of Breath / Dyspnea MDM Narrative MDM Narrative:: This section includes all my notes and documentations, including HPI, PE, and ED course. Tulio Garay MD ? HPI: 74 year old male with history of hypertension, diabetes, hyperlipidemia, anemia, valley fever, anxiety, and status post nephrectomy for cancer, who presents to the ED BIB from home with a sudden onset of throat tightness, chest pain, and shortness of breath beginning this morning. The patient reports that his throat felt as though it was closing, associated with a sensation of chest discomfort and difficulty breathing. However, he denies diaphoresis, nausea, or other associated symptoms. The patient felt anxious during the episode and called 911. By the time of arrival, the symptoms had improved. The patient reports that he began to change his mental state during the event, which led to his improvement. ? ROS: All negative except as documented in HPI. ? PE: GENERAL APPEARANCE:? alert and oriented x 4, well-developed, well-nourished, no acute distress VITALS: All vitals were reviewed and the pulse ox is 99% on room air, which is normal according to my interpretation. HEENT: Normocephalic, atraumatic; pupils equal, round, reactive to light; EOMI; mucous membranes pink, moist; oropharynx clear NECK: Supple LUNGS: CTABL; no wheezes, no rales, no rhonchi HEART: Regular rate, regular rhythm; normal S1, S2; no murmurs ABDOMEN: non distended; normal BS;? soft, no tenderness, no guarding, no rebound; no masses, no organomegaly, no hernia?? BACK:? no CVA tenderness EXTREMITIES:? atraumatic; no edema NEUROLOGIC: awake; alert and oriented x4; cranial nerves II-XII grossly intact; no focal sensory or motor deficits PSYCHIATRIC:? appropriate mood and affect SKIN: warm, dry, normal color; no rashes ? I reviewed EMS notes. ? I reviewed all diagnostic test results: My interpretation of the chest x-ray is nml diaphragmatic edge, sharp costophreic angles, nml cardiac silhouette, no infiltrates . My interpretation of the EKG @ 07:50 am, sinus bradycardia, rate 49, left axis deviation, Q-waves in lead III aVF, V1 through V5, no STEMI. Blood tests and urine test: Hgb 11.7, PT/PTT within normal limits, CMP within normal limits, UDS negative Troponin #1 0.024, troponin #2 0.038, troponin #3 0.039 ? At this point, diagnoses include: Dyspnea Elevated troponin ? Treatment here included: No medications given prior to signing out AMA. However, multiple medications were ordered. Based on my best medical judgment, I made the decision to admit the patient for further evaluation and management. 1056: I spoke with side framer Dr. Villarreal. Discussed patients PMHx, HPI, ED course, exam findings, labs, and radiology results. States he will take the patient to aquatic laborer, he agrees to consult. 1105: I spoke with hospitalist team A for admission. Discussed patients PMHx, HPI, ED course, exam findings, labs, and radiology results. The hospitalist agree to accept the patient for admission. 1135: Patient at this time is requesting to leave against medical advise. Patient reports I would rather on the way home or at home and states he no longer wants to be treated here. I have personally explained to the patient that choosing to do so may result in permanent bodily harm or . I discussed a great length that without further evaluation and monitoring there may be unforeseen circumstances and deterioration causing permanent bodily harm or as a result of their choice. The patient is alert, oriented and competent at this time. The patient states that they are aware of the serious risks as explained, but they continue to wish to leave against medical advice. Warehouse Representative and the aquatic laborer team have also spoken with the patient prior to signing out AMA and he still wishes to leave. Patient data External records reviewed:: [facility] previous records and EMS form Clinical information provided by:: patient and EMS Social determinants that could affect healthcare access:: none Patient has the following chronic illnesses:: hypertension, diabetes, hyperlipidemia, anemia, valley fever, anxiety, and status post nephrectomy for cancer, How is presenting disease/condition affected by chronic disease/condition?: exacerbated by Evaluation data The following diagnostics were reviewed and interpreted by me:: lab results, radiology exam(s) and EKG tracing(s) Lab and/or radiology exams considered but not ordered:: None Interpretation Summary: See above Medications / Prescriptions Medications or Prescriptions considered but not ordered:: None Medication administrations:: Medication Administration History Discontinued Medications Atropine Sulfate (Atropine Sulf Inj 1 Mg/Ml Vial) Confirm Administered Dose 1 mg .ROUTE .STK-MED ONE Stop: 03/25/25 11:36 Bivalirudin (Bivalirudin Ivpb 250 Mg/ 50 Ml Bottle) Confirm Administered Dose 250 mg IV .STK-MED ONE Stop: 03/25/25 11:38 Epinephrine HCl (Epinephrine Inj 0.1 Mg/Ml Syringe 10ml) Confirm Administered Dose 1 mg .ROUTE .STK-MED ONE Stop: 03/25/25 11:38 Fentanyl Citrate (Fentanyl Cit Inj 50 Mcg/Ml Amp 2ml) Confirm Administered Dose 100 mcg .ROUTE .STK-MED ONE Stop: 03/25/25 11:36 Flumazenil (Flumazenil Inj 0.1 Mg/Ml Vial 10 Ml) Confirm Administered Dose 1 mg .ROUTE .STK-MED ONE Stop: 03/25/25 11:37 Heparin Sodium (Porcine) (Heparin Sod Inj 1000 Unit/Ml Vial 10 Ml) Confirm Administered Dose 20,000 unit .ROUTE .STK-MED ONE Stop: 03/25/25 11:37 Ceftriaxone Sodium/Dextrose (Rocephin/D5w 1gm Iv Premix) 1 gm in 50 mls @ 100 mls/hr IV X1 ONE Stop: 03/25/25 11:38 Nitroglycerin/Dextrose (Nitroglycerin In D5w Ivpb) Confirm Administered Dose 50 mg in 250 mls @ ud .ROUTE .STK-MED ONE Stop: 03/25/25 11:38 Lidocaine HCl (Lidocaine Inj Pf 1% 30 Ml Vial) Confirm Administered Dose 30 ml .ROUTE .STK-MED ONE Stop: 03/25/25 11:37 Metoprolol Tartrate (Metoprolol Tartrate Inj 1 Mg/Ml Vial 5 Ml) Confirm Administered Dose 15 mg .ROUTE .STK-MED ONE Stop: 03/25/25 11:36 Midazolam HCl (Midazolam Inj 1 Mg/Ml Vial 2 Ml) Confirm Administered Dose 2 mg .ROUTE .STK-MED ONE Stop: 03/25/25 11:36 Naloxone HCl (Naloxone Inj 0.4 Mg/Ml Vial) Confirm Administered Dose 1.2 mg .ROUTE .STK-MED ONE Stop: 03/25/25 11:37 Phenylephrine HCl (Phenylephrine Inj In Ns 100 Mcg/Ml 10 Ml Syringe) Confirm Administered Dose 1,000 mcg .ROUTE .STK-MED ONE Stop: 03/25/25 11:37 Potassium Chloride (Potassium Chloride 20 Meq Tabcr) 20 meq PO X1 ONE Stop: 03/25/25 08:11 Verapamil HCl (Verapamil Inj 2.5 Mg/Ml Vial 2 Ml) Confirm Administered Dose 5 mg .ROUTE .STK-MED ONE Stop: 03/25/25 11:37 See above Consultations Consultation(s) initiated? (list below): Yes Consultation #1 (Physician, Specialty, Details): See above Diagnosis Shortness of Breath Differential Diagnosis: acute exacerbation of chronic obstructive airways disease, congestive heart failure and community acquired pneumonia Most likely diagnosis given after review of the tests above:: Dyspnea Elevated troponin Admission Indicated Admission indicated?: indicated Explain why admission is indicated or not indicated:: Admission was indicated however patient signed out against medical advice Admission Request Was there a request for admission?: Yes Admission Attestation Admission request attestation: Discussed case with [] from Hospitalist service regarding admission. Discussed patients ED course, exam findings, labs, and radiology results. The Hospitalist [agrees,declines] to accept the patient for admission. Disposition Plan Disposition Plan: other (specify) (Signed out AMA ) Critical Care Time Critical Care Time Critical Care Time: Yes Total Critical Care Time (min.): 45 Attestation: The high probability of sudden, clinically significant deterioration in the patient's condition required the highest level of my preparedness to intervene urgently. The services I provided to this patient were to treat and/or prevent clinically significant deterioration. Services included the following: chart data review, reviewing nursing notes and/or old charts, documentation time, consultant electronics collaboration regarding findings and treatment options, medication orders and management, direct patient care, vital sign assessments and ordering, interpreting and reviewing diagnostic studies and lab tests. Aggregate critical care time includes only time during which I was engaged in work directly related to the patient's care, as described above, whether at bedside or elsewhere in the Emergency Department. It did not include time spent performing other reported procedures or the services of residents, students, nurses or physician assistants. Discharge Plan Plan Patient Disposition: Left Against Medical Advice Prescriptions/Referrals Prescriptions/Med Rec: No Action tamsulosin 0.4 mg capsule 0.4 mg PO QHS metoprolol succinate 25 mg Tablet Extended Release 24 Hr 25 mg PO QDAY insulin glargine [Lantus Solostar U-100 Insulin] 100 unit/mL (3 mL) Insulin Pen 46 unit SUBCUT HS Rx Instructions: INJECT 46 UNITS AT BEDTIME ondansetron 4 mg tablet,disintegrating 4 mg PO Q8H Qty: 10 0RF ondansetron 4 mg tablet,disintegrating 4 mg PO Q8H Qty: 10 0RF atorvastatin 80 mg tablet 80 mg PO QDAY Patient Comments: take 1 tablet by mouth once daily amlodipine 10 mg tablet 10 mg PO QDAY Patient Comments: take 1 tablet by mouth once daily Referrals: David Monk MD [Primary Care Provider] - In 1 week Problem List Clinical Impression: Dyspnea, Elevated troponin Patient/Caregiver Discharge Instructions Print Language: Marshallese
[2025-03-25 07:49] LABS: Amphetamine/Methamp Scrn,U Negative (Negative); Barbiturate Screen,Urine Negative (Negative); Benzodiazepines Screen,Urine Negative (Negative); Benzoylecgonine Screen, Ur Negative (Negative); Fentanyl Screen,Urine Negative (Negative); Opiate Screen,Urine Negative (Negative); THC Screen,Urine Negative (Negative)
[2025-03-25 07:57] LABS: Troponin I 0.038 ng/mL (0.0-0.045)
[2025-03-25 10:20] LABS: Troponin I 0.039 ng/mL (0.0-0.045)
--- NOTE | 2025-03-25 12:12 | PD.IMCONS ---
HPI Data of Consult Primary Care Provider: David Monk MD Consult Narrative History of present illness: Patient this is a 74 year old male with history of hypertension, diabetes, hyperlipidemia, anemia, valley fever, anxiety, and status post nephrectomy for cancer, Patient was seen in the emergency room with the complaint of shortness of breath throat tightness chest pain Patient initial EKG did not show any acute ST-T wave changes Patient's troponin was gradually increasing though still in normal limits Patient had intermittent episodes of the symptoms Cardiology consultation requested Patient was seen in the emergency room he recalls having symptoms of throat tightness and chest pain in the upper chest region and shortness of breath He says he feels a lot better cc:: cc: Meds Home Medications and Allergies Home Medications ?Medication ?Instructions ?Recorded ?Confirmed ?Type insulin glargine 100 unit/mL (3 46 unit subcut HS 07/25/21 09/27/24 History mL) subcutaneous pen (Lantus Solostar U-100 Insulin) metoprolol succinate 25 mg 25 mg PO QDAY 07/25/21 09/27/24 History tablet,extended release 24 hr amlodipine 10 mg tablet 10 mg PO QDAY 01/04/22 09/27/24 History atorvastatin 80 mg tablet 80 mg PO QDAY 01/04/22 09/27/24 History tamsulosin 0.4 mg capsule 0.4 mg PO QHS 06/13/23 09/27/24 History Allergies Allergy/AdvReac Type Severity Reaction Status Date / Time No Known Allergies Allergy Verified 02/04/25 12:30 Exam Vital Signs Temp Pulse Resp BP Pulse Ox O2 Del Method 97.7 F 61 23 H 173/82 H 99 Room Air 03/25/25 04:18 03/25/25 04:18 03/25/25 04:18 03/25/25 04:18 03/25/25 04:18 03/25/25 04:18 Results Labs 03/25/25 06:00 03/25/25 06:00 Labs: Short CBC 03/25/25 Range/Units 06:00 WBC 5.8 (3.8-10.6) Thou/mm3 Hgb 11.7 L (13.5-16.0) g/dL Hct 33.9 L (41.0-53.0) % Plt Count 197 (140-440) Thou/mm3 BMP 03/25/25 06:00 Sodium 144 Potassium 3.3 L Chloride 104 Carbon Dioxide 28.6 BUN 15 Creatinine 1.1 Glucose 111 H Calcium 9.2 Cardiac Enzymes 03/25/25 03/25/25 03/25/25 Range/Units 06:00 07:30 09:46 Troponin I 0.024 0.038 0.039 (0.0-0.045) ng/mL Liver Function 03/25/25 Range/Units 06:00 Total Bilirubin 0.5 (0.3-1.2) mg/dL AST 23 (0-34) U/L ALT 13 (10-49) U/L Alkaline Phosphatase 96 (46-116) U/L Albumin 4.4 (3.4-4.8) gm/dL Assessment and Plan Assessment and plan (1) Shortness of breath: Status: Acute (2) Throat tightness: Status: Acute (3) Hypertension: Status: Acute (4) Diabetes: Status: Acute (5) Hyperlipidemia: Status: Acute Additional Assessment & Plan Additional Plan: Patient symptoms atypical He has multiple risk factors for coronary artery disease and angina EKG does not show any acute ST-T wave changes I have discussed with him regarding further evaluation with cardiac cath and coronary angiogram in view of his multiple risk factors with somewhat typical symptoms Risk benefits of orchitis explained to him At this point patient informs me he wants to sign out AMA
== END 2025-03-25 11:56 | disposition left against medical advice (07) ==
PROVIDERS: Emergency Medicine; Emergency Provider Emergency Medicine; PCP Family Medicine
DX: R06.02 Shortness of breath (principal); R79.89 Other specified abnormal findings of blood chemistry; Z53.29 Procedure and treatment not carried out because of patient's decision for other reasons; E11.9 Type 2 diabetes mellitus without complications; E78.5 Hyperlipidemia, unspecified; I10 Essential (primary) hypertension; R07.89 Other chest pain
CPT/HCPCS: 36415; 71045; 80053; 80307; 81001; 83735; 83880; 84484; 85025; 85610; 85730; 87040; 93005; 99283; J0168; J0461; J0583; J1643; J2250; J2312; J2371; J3010; J3490; J2305